=== PATIENT | male | born 1940 | race Caucasian/White ===

== ENCOUNTER 2024-04-02 08:01 | Outpatient (RCR) | payer MEDICARE, BC, SELFPAY | END 2024-04-10 23:59 | disposition home or self-care (01) | LOC: SCTC 08:01 | PROVIDERS: PCP Family Medicine; Referring Provider Family Medicine; Visit Provider Internal Medicine Hematology & Oncology | DX: Z51.11 Encounter for antineoplastic chemotherapy (principal); D46.9 Myelodysplastic syndrome, unspecified; Z87.891 Personal history of nicotine dependence; F10.11 Alcohol abuse, in remission; Z86.718 Personal history of other venous thrombosis and embolism; Z79.01 Long term (current) use of anticoagulants | CPT/HCPCS: 36415; 80053; 85025; 96401; J9025 ==

== ENCOUNTER → 2024-04-26 | Outpatient (CLI) | payer MEDICARE, BC, SELFPAY ==
[2024-04-26 08:35] LABS: Basophils % (Auto) 0 % (0-2.5); Eosinophils # (Auto) 0.1 Thou/mm3 (0.0-0.5); Eosinophils % (Auto) 2 % (0-10); Hematocrit 34.8 % (41.0-53.0); Hemoglobin 11.2 g/dL (13.5-16.0); Immature Granulocytes % (Auto) 1 % (0-0); Immature Granulocytes Auto 0.02 Thou/mm3 (0.00-0.00); Lymphocytes # (Auto) 1.1 Thou/mm3 (1.0-4.8); Lymphocytes % (Auto) 41 % (10-50); Mean Corpuscular HGB Conc 32.2 g/dl (31.0-37.0); Mean Corpuscular Hemoglobin 32.1 pg (25.0-35.0); Mean Corpuscular Volume 100 fL (80-100); Monocytes # (Auto) 0.2 Thou/mm3 (0.0-0.8); Monocytes % (Auto) 9 % (0-12); Neutrophils # (Auto) 1.3 Thou/mm3 (1.8-7.7); Neutrophils % (Auto) 48 % (37-80); Nucleated Red Blood Cell % 0 /100 WBC (0); Platelet Count 102 Thou/mm3 (140-440); RDW Standard Deviation 65.8 fL (35.1-43.9); Red Blood Count 3.49 Miln/mm3 (4.50-5.90)
[2024-04-26 08:44] LABS: White Blood Count 2.8 Thou/mm3 (3.8-10.6)
[2024-04-26 08:47] LABS: Alanine Aminotransferase 21 U/L (10-49); Alkaline Phosphatase 81 U/L (46-116); Anion Gap 8 (7-16); Aspartate Amino Transferase 21 U/L (0-34); BUN/Creatinine Ratio 18 Ratio (12-20); Bilirubin,Total 0.8 mg/dL (0.3-1.2); Blood Urea Nitrogen 16 mg/dL (9-23); Calcium 9.4 mg/dL (8.3-10.6); Calcium (Corrected) 9.4 mg/dL (8.5-10.1); Carbon Dioxide 26.9 mMol/L (20.0-31.0); Chloride 108 mMol/L (98-107); Creatinine (Component) 0.9 mg/dL (0.6-1.3); Glucose 126 mg/dL (74-106); Osmolality,Calculated 288 (275-295); Potassium 3.9 mMol/L (3.4-5.1); Sodium 143 mMol/L (136-145); eGFR > 60 See Note
== END | disposition home or self-care (01) ==
LOC: SCTO 07:24
PROVIDERS: PCP Family Medicine; Referring Provider Internal Medicine Hematology & Oncology; Visit Provider Internal Medicine Hematology & Oncology
DX: D46.9 Myelodysplastic syndrome, unspecified (principal)
CPT/HCPCS: 36415; 80053; 85025

== ENCOUNTER 2024-04-30 07:59 | Outpatient (RCR) | payer MEDICARE, BC, SELFPAY | END 2024-05-11 23:59 | disposition home or self-care (01) | LOC: SCTC 07:59 | PROVIDERS: PCP Family Medicine; Referring Provider Family Medicine; Visit Provider Internal Medicine Hematology & Oncology | DX: Z51.11 Encounter for antineoplastic chemotherapy (principal); D46.9 Myelodysplastic syndrome, unspecified; Z86.718 Personal history of other venous thrombosis and embolism; F10.11 Alcohol abuse, in remission; Z87.891 Personal history of nicotine dependence; Z79.01 Long term (current) use of anticoagulants | CPT/HCPCS: 36415; 80053; 85025; 96401; J9025 ==

== ENCOUNTER → 2024-05-21 | Outpatient (CLI) | payer MEDICARE, BC, SELFPAY ==
[2024-05-21 12:28] LABS: Basophils % (Auto) 1 % (0-2.5); Eosinophils % (Auto) 2 % (0-10); Hematocrit 32.5 % (41.0-53.0); Hemoglobin 10.9 g/dL (13.5-16.0); Immature Granulocytes % (Auto) 1 % (0-0); Immature Granulocytes Auto 0.01 Thou/mm3 (0.00-0.00); Lymphocytes % (Auto) 45 % (10-50); Mean Corpuscular HGB Conc 33.5 g/dl (31.0-37.0); Mean Corpuscular Hemoglobin 32.7 pg (25.0-35.0); Mean Corpuscular Volume 98 fL (80-100); Monocytes # (Auto) 0.2 Thou/mm3 (0.0-0.8); Monocytes % (Auto) 10 % (0-12); Neutrophils # (Auto) 0.9 Thou/mm3 (1.8-7.7); Neutrophils % (Auto) 42 % (37-80); Nucleated Red Blood Cell % 0 /100 WBC (0); Platelet Count 81 Thou/mm3 (140-440); RDW Standard Deviation 64.2 fL (35.1-43.9); Red Blood Count 3.33 Miln/mm3 (4.50-5.90)
[2024-05-21 12:39] LABS: Alanine Aminotransferase 22 U/L (10-49); Albumin, Serum 4.2 gm/dL (3.4-4.8); Alkaline Phosphatase 90 U/L (46-116); Anion Gap 7 (7-16); Aspartate Amino Transferase 14 U/L (0-34); BUN/Creatinine Ratio 17 Ratio (12-20); Bilirubin,Total 1.2 mg/dL (0.3-1.2); Blood Urea Nitrogen 15 mg/dL (9-23); Carbon Dioxide 27.4 mMol/L (20.0-31.0); Chloride 105 mMol/L (98-107); Creatinine (Component) 0.9 mg/dL (0.6-1.3); Globulin 2.1 gm/dL (2.3-3.5); Glucose 97 mg/dL (74-106); Osmolality,Calculated 278 (275-295); Potassium 4.3 mMol/L (3.4-5.1); Sodium 139 mMol/L (136-145); Total Protein 6.3 gm/dL (5.7-8.2); eGFR > 60 See Note
[2024-05-21 12:45] LABS: White Blood Count 2.1 Thou/mm3 (3.8-10.6)
[2024-05-21 15:28] LABS: Path Review Blood Smear Sent to Pathologist
== END | disposition home or self-care (01) ==
LOC: SCTO 11:31
PROVIDERS: PCP Family Medicine; Referring Provider Internal Medicine Hematology & Oncology; Visit Provider Internal Medicine Hematology & Oncology
DX: D46.9 Myelodysplastic syndrome, unspecified (principal)
CPT/HCPCS: 36415; 80053; 85025

== ENCOUNTER → 2024-05-28 | Outpatient (CLI) | payer MEDICARE, BC, SELFPAY ==
[2024-05-28 15:23] LABS: Basophils % (Auto) 0 % (0-2.5); Eosinophils % (Auto) 1 % (0-10); Hematocrit 35.1 % (41.0-53.0); Hemoglobin 11.6 g/dL (13.5-16.0); Immature Granulocytes % (Auto) 1 % (0-0); Immature Granulocytes Auto 0.03 Thou/mm3 (0.00-0.00); Lymphocytes # (Auto) 1.3 Thou/mm3 (1.0-4.8); Lymphocytes % (Auto) 44 % (10-50); Mean Corpuscular Hemoglobin 32.5 pg (25.0-35.0); Mean Corpuscular Volume 98 fL (80-100); Monocytes # (Auto) 0.3 Thou/mm3 (0.0-0.8); Monocytes % (Auto) 11 % (0-12); Neutrophils # (Auto) 1.3 Thou/mm3 (1.8-7.7); Neutrophils % (Auto) 43 % (37-80); Nucleated Red Blood Cell % 0 /100 WBC (0); Platelet Count 88 Thou/mm3 (140-440); RDW Standard Deviation 63.7 fL (35.1-43.9); Red Blood Count 3.57 Miln/mm3 (4.50-5.90)
[2024-05-28 15:38] LABS: Alanine Aminotransferase 18 U/L (10-49); Albumin, Serum 4.2 gm/dL (3.4-4.8); Albumin/Globulin Ratio 2.2 (1.2-2.2); Alkaline Phosphatase 102 U/L (46-116); Anion Gap 7 (7-16); Aspartate Amino Transferase 17 U/L (0-34); BUN/Creatinine Ratio 17 Ratio (12-20); Bilirubin,Total 1.1 mg/dL (0.3-1.2); Blood Urea Nitrogen 15 mg/dL (9-23); Calcium 9.3 mg/dL (8.3-10.6); Calcium (Corrected) 9.3 mg/dL (8.5-10.1); Carbon Dioxide 29.4 mMol/L (20.0-31.0); Chloride 107 mMol/L (98-107); Creatinine (Component) 0.9 mg/dL (0.6-1.3); Globulin 1.9 gm/dL (2.3-3.5); Glucose 99 mg/dL (74-106); Osmolality,Calculated 285 (275-295); Potassium 5.1 mMol/L (3.4-5.1); Sodium 143 mMol/L (136-145); Total Protein 6.1 gm/dL (5.7-8.2); eGFR > 60 See Note
== END | disposition home or self-care (01) ==
PROVIDERS: PCP Family Medicine; Referring Provider Internal Medicine Hematology & Oncology; Visit Provider Internal Medicine Hematology & Oncology
DX: D46.9 Myelodysplastic syndrome, unspecified (principal)
CPT/HCPCS: 36415; 80053; 85025

== ENCOUNTER 2024-06-09 11:19 | Outpatient (RCR) | payer MEDICARE, BC, SELFPAY | END 2024-06-11 23:59 | disposition home or self-care (01) | LOC: SCTC 11:19 | PROVIDERS: PCP Family Medicine; Referring Provider Internal Medicine Hematology & Oncology; Visit Provider Nurse Practitioner Family | DX: Z51.11 Encounter for antineoplastic chemotherapy (principal); D46.9 Myelodysplastic syndrome, unspecified; Z87.891 Personal history of nicotine dependence; F10.11 Alcohol abuse, in remission; Z86.718 Personal history of other venous thrombosis and embolism; Z79.01 Long term (current) use of anticoagulants | CPT/HCPCS: 96401; 99212; J9025; G0463 ==

== ENCOUNTER → 2024-06-25 | Outpatient (CLI) | payer MEDICARE, BC, SELFPAY ==
[2024-06-25 13:24] LABS: Basophils % (Auto) 1 % (0-2.5); Eosinophils % (Auto) 1 % (0-10); Hematocrit 31.5 % (41.0-53.0); Hemoglobin 10.6 g/dL (13.5-16.0); Immature Granulocytes % (Auto) 1 % (0-0); Immature Granulocytes Auto 0.01 Thou/mm3 (0.00-0.00); Lymphocytes # (Auto) 1.1 Thou/mm3 (1.0-4.8); Lymphocytes % (Auto) 49 % (10-50); Mean Corpuscular HGB Conc 33.7 g/dl (31.0-37.0); Mean Corpuscular Hemoglobin 33.5 pg (25.0-35.0); Mean Corpuscular Volume 100 fL (80-100); Monocytes # (Auto) 0.2 Thou/mm3 (0.0-0.8); Monocytes % (Auto) 10 % (0-12); Neutrophils # (Auto) 0.8 Thou/mm3 (1.8-7.7); Neutrophils % (Auto) 38 % (37-80); Nucleated Red Blood Cell % 0 /100 WBC (0); RDW Standard Deviation 64.8 fL (35.1-43.9); Red Blood Count 3.16 Miln/mm3 (4.50-5.90)
[2024-06-25 13:34] LABS: Platelet Count 62 Thou/mm3 (140-440)
[2024-06-25 13:42] LABS: Alanine Aminotransferase 20 U/L (10-49); Albumin, Serum 3.9 gm/dL (3.4-4.8); Albumin/Globulin Ratio 2.1 (1.2-2.2); Alkaline Phosphatase 88 U/L (46-116); Anion Gap 7 (7-16); Aspartate Amino Transferase 22 U/L (0-34); BUN/Creatinine Ratio 18 Ratio (12-20); Bilirubin,Total 0.9 mg/dL (0.3-1.2); Blood Urea Nitrogen 16 mg/dL (9-23); Calcium 8.9 mg/dL (8.3-10.6); Carbon Dioxide 27.5 mMol/L (20.0-31.0); Chloride 108 mMol/L (98-107); Creatinine (Component) 0.9 mg/dL (0.6-1.3); Globulin 1.9 gm/dL (2.3-3.5); Glucose 97 mg/dL (74-106); Osmolality,Calculated 284 (275-295); Potassium 4.6 mMol/L (3.4-5.1); Sodium 142 mMol/L (136-145); Total Protein 5.8 gm/dL (5.7-8.2); eGFR > 60 See Note
[2024-06-25 14:24] LABS: White Blood Count 2.1 Thou/mm3 (3.8-10.6)
[2024-06-25 16:28] LABS: Slide Review Platelets confirmed
== END | disposition home or self-care (01) ==
LOC: SCTO 12:17
PROVIDERS: PCP Family Medicine; Referring Provider Internal Medicine Hematology & Oncology; Visit Provider Internal Medicine Hematology & Oncology
DX: D46.9 Myelodysplastic syndrome, unspecified (principal)
CPT/HCPCS: 36415; 80053; 85025

== ENCOUNTER → 2024-07-20 | Outpatient (CLI) | payer MEDICARE, BC, SELFPAY ==
[2024-07-20 11:35] LABS: Basophils % (Auto) 0 % (0-2.5); Eosinophils % (Auto) 1 % (0-10); Hematocrit 30.2 % (41.0-53.0); Hemoglobin 10.1 g/dL (13.5-16.0); Immature Granulocytes % (Auto) 1 % (0-0); Immature Granulocytes Auto 0.01 Thou/mm3 (0.00-0.00); Lymphocytes # (Auto) 0.8 Thou/mm3 (1.0-4.8); Lymphocytes % (Auto) 45 % (10-50); Mean Corpuscular HGB Conc 33.4 g/dl (31.0-37.0); Mean Corpuscular Hemoglobin 33.3 pg (25.0-35.0); Mean Corpuscular Volume 100 fL (80-100); Monocytes # (Auto) 0.2 Thou/mm3 (0.0-0.8); Monocytes % (Auto) 9 % (0-12); Neutrophils # (Auto) 0.8 Thou/mm3 (1.8-7.7); Neutrophils % (Auto) 44 % (37-80); Nucleated Red Blood Cell % 0 /100 WBC (0); RDW Standard Deviation 63.7 fL (35.1-43.9); Red Blood Count 3.03 Miln/mm3 (4.50-5.90)
[2024-07-20 11:44] LABS: Platelet Count 36 Thou/mm3 (140-440); White Blood Count 1.7 Thou/mm3 (3.8-10.6)
[2024-07-20 11:54] LABS: Folate 12.44 ng/mL (>5.38); Vitamin B12 1300 pg/mL (211-911)
[2024-07-20 11:55] LABS: Ferritin 361 ng/mL (10.5-307.3); Iron 221 mcg/dL (65-175); Percent Iron Saturation 80 % (20-55); Total Iron Binding Capacity 276 mcg/dL (250-425); Unsaturated Iron Binding 55 (225-295)
[2024-07-20 12:02] LABS: Alanine Aminotransferase 20 U/L (10-49); Albumin, Serum 3.9 gm/dL (3.4-4.8); Albumin/Globulin Ratio 2.1 (1.2-2.2); Alkaline Phosphatase 80 U/L (46-116); Anion Gap 4 (7-16); Aspartate Amino Transferase 21 U/L (0-34); BUN/Creatinine Ratio 16 Ratio (12-20); Bilirubin,Total 1.3 mg/dL (0.3-1.2); Blood Urea Nitrogen 14 mg/dL (9-23); Calcium 8.8 mg/dL (8.3-10.6); Calcium (Corrected) 8.9 mg/dL (8.5-10.1); Carbon Dioxide 27.5 mMol/L (20.0-31.0); Chloride 109 mMol/L (98-107); Creatinine (Component) 0.9 mg/dL (0.6-1.3); Globulin 1.9 gm/dL (2.3-3.5); Glucose 93 mg/dL (74-106); Osmolality,Calculated 279 (275-295); Potassium 4.8 mMol/L (3.4-5.1); Sodium 140 mMol/L (136-145); Total Protein 5.8 gm/dL (5.7-8.2); eGFR > 60 See Note
[2024-07-20 12:11] LABS: Slide Review Platelets confirmed
== END | disposition home or self-care (01) ==
PROVIDERS: PCP Family Medicine; Referring Provider Nurse Practitioner Family; Visit Provider Nurse Practitioner Family
DX: I82.402 Acute embolism and thrombosis of unspecified deep veins of left lower extremity (principal); D46.9 Myelodysplastic syndrome, unspecified
CPT/HCPCS: 36415; 80053; 82607; 82728; 82746; 83540; 83550; 85025

== ENCOUNTER → 2024-07-23 | Outpatient (CLI) | payer MEDICARE, BC, SELFPAY ==
[2024-07-23 13:44] LABS: Basophils % (Auto) 1 % (0-2.5); Eosinophils % (Auto) 1 % (0-10); Hematocrit 28.6 % (41.0-53.0); Hemoglobin 9.2 g/dL (13.5-16.0); Immature Granulocytes % (Auto) 1 % (0-0); Immature Granulocytes Auto 0.01 Thou/mm3 (0.00-0.00); Lymphocytes # (Auto) 0.8 Thou/mm3 (1.0-4.8); Lymphocytes % (Auto) 39 % (10-50); Mean Corpuscular HGB Conc 32.2 g/dl (31.0-37.0); Mean Corpuscular Hemoglobin 33.6 pg (25.0-35.0); Mean Corpuscular Volume 104 fL (80-100); Monocytes # (Auto) 0.2 Thou/mm3 (0.0-0.8); Monocytes % (Auto) 8 % (0-12); Neutrophils % (Auto) 51 % (37-80); Nucleated Red Blood Cell % 0 /100 WBC (0); RDW Standard Deviation 66.6 fL (35.1-43.9); Red Blood Count 2.74 Miln/mm3 (4.50-5.90)
[2024-07-23 14:02] LABS: Alanine Aminotransferase 12 U/L (10-49); Albumin, Serum 3.7 gm/dL (3.4-4.8); Albumin/Globulin Ratio 1.9 (1.2-2.2); Alkaline Phosphatase 86 U/L (46-116); Anion Gap 9 (7-16); Aspartate Amino Transferase 16 U/L (0-34); BUN/Creatinine Ratio 13 Ratio (12-20); Bilirubin,Total 0.7 mg/dL (0.3-1.2); Blood Urea Nitrogen 13 mg/dL (9-23); Calcium 8.3 mg/dL (8.3-10.6); Calcium (Corrected) 8.5 mg/dL (8.5-10.1); Carbon Dioxide 26.2 mMol/L (20.0-31.0); Chloride 108 mMol/L (98-107); Globulin 1.9 gm/dL (2.3-3.5); Glucose 99 mg/dL (74-106); Osmolality,Calculated 285 (275-295); Potassium 4.1 mMol/L (3.4-5.1); Sodium 143 mMol/L (136-145); Total Protein 5.6 gm/dL (5.7-8.2); eGFR > 60 See Note
[2024-07-23 14:12] LABS: Platelet Count 43 Thou/mm3 (140-440); White Blood Count 1.9 Thou/mm3 (3.8-10.6)
[2024-07-23 15:19] LABS: Slide Review Platelets confirmed
== END | disposition home or self-care (01) ==
PROVIDERS: PCP Family Medicine; Referring Provider Internal Medicine Hematology & Oncology; Visit Provider Internal Medicine Hematology & Oncology
DX: D46.9 Myelodysplastic syndrome, unspecified (principal)
CPT/HCPCS: 36415; 80053; 85025

== ENCOUNTER → 2024-08-02 | Outpatient (CLI) | payer MEDICARE, BC, SELFPAY ==
[2024-08-02 11:30] LABS: Basophils % (Auto) 0 % (0-2.5); Eosinophils % (Auto) 0 % (0-10); Hematocrit 35.7 % (41.0-53.0); Hemoglobin 11.8 g/dL (13.5-16.0); Immature Granulocytes % (Auto) 1 % (0-0); Immature Granulocytes Auto 0.04 Thou/mm3 (0.00-0.00); Lymphocytes # (Auto) 1.3 Thou/mm3 (1.0-4.8); Lymphocytes % (Auto) 37 % (10-50); Mean Corpuscular HGB Conc 33.1 g/dl (31.0-37.0); Mean Corpuscular Hemoglobin 33.5 pg (25.0-35.0); Mean Corpuscular Volume 101 fL (80-100); Monocytes # (Auto) 0.3 Thou/mm3 (0.0-0.8); Monocytes % (Auto) 8 % (0-12); Neutrophils # (Auto) 1.9 Thou/mm3 (1.8-7.7); Neutrophils % (Auto) 54 % (37-80); Nucleated Red Blood Cell % 0 /100 WBC (0); Platelet Count 90 Thou/mm3 (140-440); Red Blood Count 3.52 Miln/mm3 (4.50-5.90); White Blood Count 3.6 Thou/mm3 (3.8-10.6)
[2024-08-02 11:46] LABS: Alanine Aminotransferase 18 U/L (10-49); Albumin, Serum 4.2 gm/dL (3.4-4.8); Alkaline Phosphatase 92 U/L (46-116); Anion Gap 9 (7-16); Aspartate Amino Transferase 21 U/L (0-34); BUN/Creatinine Ratio 20 Ratio (12-20); Bilirubin,Total 1.2 mg/dL (0.3-1.2); Blood Urea Nitrogen 18 mg/dL (9-23); Calcium 9.3 mg/dL (8.3-10.6); Calcium (Corrected) 9.3 mg/dL (8.5-10.1); Chloride 104 mMol/L (98-107); Creatinine (Component) 0.9 mg/dL (0.6-1.3); Globulin 2.1 gm/dL (2.3-3.5); Glucose 89 mg/dL (74-106); Osmolality,Calculated 280 (275-295); Potassium 4.6 mMol/L (3.4-5.1); Sodium 140 mMol/L (136-145); Total Protein 6.3 gm/dL (5.7-8.2); eGFR > 60 See Note
[2024-08-02 11:50] LABS: Ferritin 352 ng/mL (10.5-307.3); Iron 126 mcg/dL (65-175); Percent Iron Saturation 43 % (20-55); Total Iron Binding Capacity 291 mcg/dL (250-425); Unsaturated Iron Binding 165 (225-295)
== END | disposition home or self-care (01) ==
LOC: COPL 10:43
PROVIDERS: PCP Family Medicine; Referring Provider Nurse Practitioner Family; Visit Provider Nurse Practitioner Family
DX: D46.9 Myelodysplastic syndrome, unspecified (principal); I82.402 Acute embolism and thrombosis of unspecified deep veins of left lower extremity
CPT/HCPCS: 36415; 80053; 82728; 83540; 83550; 85025

== ENCOUNTER 2024-08-04 08:37 | Outpatient (RCR) | payer MEDICARE, BC, SELFPAY | END 2024-08-09 23:59 | disposition home or self-care (01) | LOC: SCTC 08:37 | PROVIDERS: PCP Family Medicine; Referring Provider Internal Medicine Hematology & Oncology; Visit Provider Internal Medicine Hematology & Oncology | DX: Z51.11 Encounter for antineoplastic chemotherapy (principal); D46.9 Myelodysplastic syndrome, unspecified; F10.11 Alcohol abuse, in remission; Z87.891 Personal history of nicotine dependence; Z86.718 Personal history of other venous thrombosis and embolism; Z79.01 Long term (current) use of anticoagulants | CPT/HCPCS: 36415; 36430; 86850; 86900; 86901; 86965; 96401; 99212; A4699; J7040; J9025; P9035; G0463 ==

== ENCOUNTER → 2024-08-13 | Outpatient (CLI) | payer MEDICARE, BC, SELFPAY ==
[2024-08-13 13:21] LABS: Basophils % (Auto) 1 % (0-2.5); Eosinophils % (Auto) 1 % (0-10); Hematocrit 27.7 % (41.0-53.0); Hemoglobin 9.2 g/dL (13.5-16.0); Immature Granulocytes % (Auto) 1 % (0-0); Immature Granulocytes Auto 0.02 Thou/mm3 (0.00-0.00); Lymphocytes # (Auto) 0.7 Thou/mm3 (1.0-4.8); Lymphocytes % (Auto) 38 % (10-50); Mean Corpuscular HGB Conc 33.2 g/dl (31.0-37.0); Mean Corpuscular Hemoglobin 33.6 pg (25.0-35.0); Mean Corpuscular Volume 101 fL (80-100); Monocytes # (Auto) 0.1 Thou/mm3 (0.0-0.8); Monocytes % (Auto) 7 % (0-12); Neutrophils % (Auto) 53 % (37-80); Nucleated Red Blood Cell % 0 /100 WBC (0); RDW Standard Deviation 61.8 fL (35.1-43.9); Red Blood Count 2.74 Miln/mm3 (4.50-5.90)
[2024-08-13 13:23] LABS: Platelet Count 27 Thou/mm3 (140-440); White Blood Count 1.9 Thou/mm3 (3.8-10.6)
[2024-08-13 13:55] LABS: Slide Review Platelets confirmed
== END | disposition home or self-care (01) ==
LOC: SCTO 12:16
PROVIDERS: PCP Family Medicine; Referring Provider Nurse Practitioner Family; Visit Provider Nurse Practitioner Family
DX: I82.402 Acute embolism and thrombosis of unspecified deep veins of left lower extremity (principal); D46.9 Myelodysplastic syndrome, unspecified
CPT/HCPCS: 36415; 85025

== ENCOUNTER → 2024-08-20 | Outpatient (CLI) | payer MEDICARE, BC, SELFPAY ==
[2024-08-20 13:31] LABS: Basophils % (Auto) 1 % (0-2.5); Eosinophils % (Auto) 1 % (0-10); Hematocrit 27.2 % (41.0-53.0); Immature Granulocytes % (Auto) 1 % (0-0); Immature Granulocytes Auto 0.02 Thou/mm3 (0.00-0.00); Lymphocytes # (Auto) 0.6 Thou/mm3 (1.0-4.8); Lymphocytes % (Auto) 44 % (10-50); Mean Corpuscular Hemoglobin 34.1 pg (25.0-35.0); Mean Corpuscular Volume 107 fL (80-100); Monocytes # (Auto) 0.1 Thou/mm3 (0.0-0.8); Monocytes % (Auto) 7 % (0-12); Neutrophils # (Auto) 0.6 Thou/mm3 (1.8-7.7); Neutrophils % (Auto) 46 % (37-80); Nucleated Red Blood Cell % 0 /100 WBC (0); RDW Standard Deviation 68.4 fL (35.1-43.9); Red Blood Count 2.55 Miln/mm3 (4.50-5.90)
[2024-08-20 13:37] LABS: Hemoglobin 8.7 g/dL (13.5-16.0); Platelet Count 51 Thou/mm3 (140-440); White Blood Count 1.4 Thou/mm3 (3.8-10.6)
[2024-08-20 13:49] LABS: Slide Review Platelets confirmed
== END | disposition home or self-care (01) ==
LOC: SCTO 12:01
PROVIDERS: PCP Family Medicine; Referring Provider Nurse Practitioner Family; Visit Provider Nurse Practitioner Family
DX: I82.402 Acute embolism and thrombosis of unspecified deep veins of left lower extremity (principal); D46.9 Myelodysplastic syndrome, unspecified
CPT/HCPCS: 36415; 85025

== ENCOUNTER → 2024-08-31 | Outpatient (CLI) | payer MEDICARE, BC, SELFPAY ==
[2024-08-31 12:08] LABS: Basophils % (Auto) 1 % (0-2.5); Eosinophils % (Auto) 0 % (0-10); Hematocrit 29.7 % (41.0-53.0); Hemoglobin 9.9 g/dL (13.5-16.0); Immature Granulocytes % (Auto) 2 % (0-0); Immature Granulocytes Auto 0.06 Thou/mm3 (0.00-0.00); Lymphocytes # (Auto) 1.3 Thou/mm3 (1.0-4.8); Lymphocytes % (Auto) 39 % (10-50); Mean Corpuscular HGB Conc 33.3 g/dl (31.0-37.0); Mean Corpuscular Hemoglobin 34.6 pg (25.0-35.0); Mean Corpuscular Volume 104 fL (80-100); Monocytes # (Auto) 0.2 Thou/mm3 (0.0-0.8); Monocytes % (Auto) 6 % (0-12); Neutrophils # (Auto) 1.7 Thou/mm3 (1.8-7.7); Neutrophils % (Auto) 52 % (37-80); Nucleated Red Blood Cell # 0.02 Thou/mm3 (0.00-0.00); Nucleated Red Blood Cell % 1 /100 WBC (0); RDW Standard Deviation 67.7 fL (35.1-43.9); Red Blood Count 2.86 Miln/mm3 (4.50-5.90); White Blood Count 3.2 Thou/mm3 (3.8-10.6)
[2024-08-31 12:09] LABS: Platelet Count 58 Thou/mm3 (140-440)
[2024-08-31 12:14] LABS: Alanine Aminotransferase 18 U/L (10-49); Albumin, Serum 3.9 gm/dL (3.4-4.8); Albumin/Globulin Ratio 1.9 (1.2-2.2); Alkaline Phosphatase 79 U/L (46-116); Anion Gap 8 (7-16); Aspartate Amino Transferase 19 U/L (0-34); BUN/Creatinine Ratio 18 Ratio (12-20); Bilirubin,Total 1.1 mg/dL (0.3-1.2); Blood Urea Nitrogen 16 mg/dL (9-23); Calcium 8.7 mg/dL (8.3-10.6); Calcium (Corrected) 8.8 mg/dL (8.5-10.1); Carbon Dioxide 24.7 mMol/L (20.0-31.0); Chloride 109 mMol/L (98-107); Creatinine (Component) 0.9 mg/dL (0.6-1.3); Globulin 2.1 gm/dL (2.3-3.5); Glucose 100 mg/dL (74-106); Osmolality,Calculated 284 (275-295); Potassium 4.2 mMol/L (3.4-5.1); Sodium 142 mMol/L (136-145); eGFR > 60 See Note
[2024-08-31 13:04] LABS: Slide Review Platelets confirmed
== END | disposition home or self-care (01) ==
PROVIDERS: PCP Family Medicine; Referring Provider Nurse Practitioner Family; Visit Provider Nurse Practitioner Family
DX: I82.402 Acute embolism and thrombosis of unspecified deep veins of left lower extremity (principal)
CPT/HCPCS: 36415; 80053; 85025

== ENCOUNTER 2024-09-02 15:12 | Outpatient (RCR) | payer MEDICARE, BC, SELFPAY ==
[2024-08-23 11:12] LABS: Alanine Aminotransferase 16 U/L (10-49); Albumin, Serum 3.9 gm/dL (3.4-4.8); Alkaline Phosphatase 82 U/L (46-116); Anion Gap 7 (7-16); Aspartate Amino Transferase 19 U/L (0-34); BUN/Creatinine Ratio 14 Ratio (12-20); Bilirubin,Total 0.8 mg/dL (0.3-1.2); Blood Urea Nitrogen 13 mg/dL (9-23); Calcium 8.6 mg/dL (8.3-10.6); Calcium (Corrected) 8.7 mg/dL (8.5-10.1); Carbon Dioxide 24.4 mMol/L (20.0-31.0); Chloride 110 mMol/L (98-107); Creatinine (Component) 0.9 mg/dL (0.6-1.3); Glucose 131 mg/dL (74-106); Osmolality,Calculated 283 (275-295); Potassium 4.2 mMol/L (3.4-5.1); Sodium 141 mMol/L (136-145); Total Protein 5.9 gm/dL (5.7-8.2); eGFR > 60 See Note
--- NOTE | 2024-09-07 02:23 | CTCFLWUP_ITS ---
Patient: MICHAEL RAMSAY : 1940 Page 5 of 6 FOLLOW UP NOTE DATE OF SERVICE: 09/02/2024 NAME: MICHAEL RAMSAY ACCOUNT: [id number] : 1940 AGE: 83 INTERVAL HISTORY: I am seeing Mr. Ramsay today for follow-up for MDS. Patient received transfusion of 1 unit of platelets on 07/26/2024 for platelet above 43,000. Patient has received Vidaza on 07/30/2024. Labs drawn on 08/02/2024 show platelets 90,000, hemoglobin 11.8. Next vidaza is scheduled for 08/23/2024. Dena powell reports good appetite and energy levels, denies any concerns during today's appointment. The patient is currently undergoing treatment for MDS with Vidaza (azacitidine) on a regimen of day one to day five, once a month, as prescribed by Dr. Tellez. They have not required any blood transfusions recently, though last month they received one unit of platelets due to low platelet count. The patient continues to take anticoagulants for their history of deep vein thrombosis (DVT) in both the leg and arm. Medical History - Myelodysplastic syndrome (MDS) - Deep vein thrombosis (DVT) with history of blood clots in leg and arm - Chronic respiratory issues requiring oxygen therapy at night and as needed - Seasonal allergies Surgical History - Bone marrow biopsy in [place] (specimen quality was poor) Medications and Supplements - Vidaza (azacitidine) - Day one to day five, once a month - For MDS treatment - Singulair - For allergies - Inhalers - Anticoagulants - For DVT - Oxygen - Used at night and as needed - Prescribed by multiple knife edge trimmer operator Allergies - Patient attributes breathing problems to allergies - Patient uses Singulair for allergies Social History - Living Situation: Resides in the [place] - Environmental Factors: Exposure to allergens in the [place] Review of Systems General: Positive for fatigue. Respiratory: Positive for dyspnea on exertion, breathing problems. ONCOLOGY HISTORY: Myelodysplastic syndrome with IPSS?R score of 3, risk category intermediate Currently on azacitidine (12/16/2022??). DIAGNOSIS: Myelodysplastic syndrome, unspecified [ICD10] D46.9 Myelodysplastic syndrome with IPSS?R score of 3, risk category intermediate DATE OF DIAGNOSIS: 11/13/2022 STAGE/TNM: Myelodysplastic syndrome with IPSS?R score of 3, risk category intermediate TREATMENT HISTORY: Care?Plan Start?Date Cycle Day Intent Azacitadine?sq?d1-5 12/16/2022 1 28 Palliative Azacytadine?sq?days?1-5 05/31/2024 1 28 Maintenance HISTORY OF PRESENT ILLNESS: Michael Ramsay is a 83-year-old ENG speaking male with remote history of cigarette smoking as well as alcohol abuse is referred to hematology clinic for anemia and thrombocytopenia. About 10 years ago patient apparently had an unprovoked left lower extremity DVT. About 8 years ago he had right knee surgery. At that time he developed left lower extremity DVT again. He also has remote history of left upper extremity DVT. Currently Mr. Ramsay is on indefinite anticoagulation with apixaban. 07/22/2022: WBC 3.2, ANC 2.1, hemoglobin 9.1, MCV 105, platelets 83,000. 11/13/2022: Mr. Ramsay had bone marrow biopsy and aspiration was done due to macrocytic anemia and thrombocytopenia. 12/13/2022: WBC 2.6, ANC 1.5, hemoglobin 7.8, MCV 104, platelets 57,000. 12/16/2022 - 04/18/2023: Mr. Ramsay had 5 cycles of Vidaza 05/13/2023: WBC 3.2, ANC 1.8, hemoglobin 9.6, MCV 105, platelets 103,000. 08/22/2023: Mr. Ramsay received 9 cycles of Vidaza 09/01/2023: WBC 3.3, ANC 2.0, hemoglobin 10.2, MCV 100, platelets 86,000. 10/13/2023: WBC 2.2, ANC 1.7, hemoglobin 10.9, MCV 101, platelets 143,000. OTHER MEDICAL HISTORY/CONDITIONS: Asthma Hx?DVT GERD Chronic?pain Cholecystectomy - 2007 Right TKA - 2017 [facility] carpal tunnel surgery - 30 yrs ago [facility] cataract surgery [facility] Lasik surgery Retinal repair right eye FAMILY HISTORY: Cancer?History:?Denies Patient?denies?family?cancer?history. 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 Tobacco Use:?Quit 1964 - smoked 1 PPD off/on x 10yrs ETOH Use:?Drinks beer almost daily x 15 yrs Drug?Note:?Denies Social?History?Note:?Lives?with? MEDICATIONS: 1. CeleBREX - 50 mg 1 Capsule Daily 2. cyanocobalamin (vitamin B-12) - 1,000 mcg 1 tab Daily 3. Decadron - 4 mg Daily 4. Eliquis - 5 mg 2 tab Twice a Day 5. Protonix - 40 mg Daily 6. sildenafiL - 25 mg 1 tab As needed 7. Singulair - 10 mg 1 tab Daily Medications Last Reconciled by Letitia Flannery MA on 09/02/2024 ALLERGIES: morphine REVIEW OF SYSTEMS: A complete 14-point review of systems was performed and is negative except as noted in interval history. PHYSICAL EXAMINATION: VITAL SIGNS: Temperature?99.5, B/P?102/60, Oxygen?Saturation?96% PAIN: 0 - No pain ECOG Performance Status: None Not done visit was telemedicine. LABORATORY DATA: I have personally reviewed and interpreted each of the patient?s relevant lab tests, abnormal findings are below: Date 08/20/24 08/23/24 08/31/24 ??WHITE?BLOOD?COUNT?(Thou/mm3) 1.4?L ? 3.2?L ??RED?BLOOD?COUNT?(Miln/mm3) 2.55?L ? 2.86?L ??HEMOGLOBIN?(gm/dl) 8.7?L ? 9.9?L ??HEMATOCRIT?(%) 27.2?L ? 29.7?L ??PLATELET?COUNT?(Thou/mm3) 51?L ? 58?L ??NEUTROPHILS?%,?AUTO?(%) 46 ? 52 ??LYMPH?%,?AUTO?(%) 44 ? 39 ??NEUTROPHILS,?AUTO?(Thou/mm3) 0.6?L ? 1.7?L ??GLUCOSE,RANDOM?(mg/dL) ? 131?H 100 ??BLOOD?UREA?NITROGEN?(mg/dL) ? 13 16 ??CREATININE?(mg/dL) ? 0.90 0.90 ??SODIUM?(mmol/L) ? 141 142 ??POTASSIUM?(mmol/L) ? 4.2 4.2 ??CHLORIDE?(mmol/L) ? 110?H 109?H ??CrCl?(CandG)?(ml/min) ? 69.08 69.30 ??AST/SGOT?(Unit/L) ? 19 19 ??ALT/SGPT?(Unit/L) ? 16 18 ??ALKALINE?PHOSPHATASE?(Unit/L) ? 82 79 ??BILIRUBIN,?TOTAL?(mg/dL) ? 0.8 1.1 ??PROTEIN?TOTAL?(gm/dl) ? 5.9 6.0 ??ALBUMIN,?SERUM?(gm/dl) ? 3.9 3.9 ??GLOBULIN?(gm/dl) ? 2.0?L 2.1?L ??ALBUMIN/GLOBULIN?RATIO ? 2.0 1.9 ??CALCIUM,?SERUM?(mg/dL) ? 8.6 8.7 ??CALCIUM?SERUM?(CORRECTED)?(mg/dL) ? 8.7 8.8 Vital Signs - Oxygen Saturation: 95% (patient's usual rate) Laboratory, Imaging, and Diagnostic Test Results - Date: Not specified - CBC: - WBC: 3.2 - Hemoglobin: 9.9 g/dL - Platelets: 58 - Previous results: - Platelets: 45, 90, 57 (dates not specified) - Oxygen saturation: 95% (date not specified) ASSESSMENT/PLAN: 1. Myelodysplastic syndrome with IPSS?R score of 3, risk category intermediate Currently he is on azacitidine and tolerating it. Patient received transfusion of 1 unit of platelets on 07/26/2024 for platelet above 43,000. Devendra, a patient with a history of myelodysplastic syndrome (MDS) and deep vein thrombosis (DVT), ongoing cancer treatment. Myelodysplastic Syndrome (MDS) Assessment: Patient is currently undergoing treatment for MDS with azacitidine (Vidaza) on a 5-day monthly regimen. Recent lab results show fluctuating platelet counts (45 to 90, now 57), hemoglobin of 9.9, and white blood cell count of 3.2. The treatment appears to be effective, as the patient has not required blood transfusions recently, except for one unit of platelets last month due to low platelet count. A bone marrow biopsy is needed for accurate assessment of cancer progression, as the previous specimen from [place] was inadequate. Plan: - Continue azacitidine (Vidaza) treatment, days 1-5 monthly - Schedule bone marrow biopsy in [place], pending insurance authorization - Monitor blood counts and transfuse as needed - Follow up in 2 months, ideally after bone marrow biopsy results allergies Assessment: Oxygen saturation is consistently around 95%. The patient uses oxygen at night and as needed, prescribed by their multiple knife edge trimmer operator. Allergies have been considered as a contributing factor. Plan: - Continue current oxygen therapy as prescribed by multiple knife edge trimmer operator - Maintain use of Singular and inhalers for allergy and respiratory management Deep Vein Thrombosis (DVT) Assessment: Patient has a history of blood clots in both leg and arm, currently managed with anticoagulants. Plan: - Continue current anticoagulation therapy for DVT management 2. History of alcohol abuse, cigarette smoking in the past. 3. History of recurrent left lower extremity DVT. Currently patient is on indefinite anticoagulation with Eliquis. CBC every 2 weeks to monitor platelet level. Order # Description [id number] Follow Up [id number] CBC with Auto Diff [id number] CBC with Auto Diff + Comprehensive Metabolic Panel - 12 ORDERS: Order # Description RETURN TO CLINIC: BILLING AND COMPLIANCE: I reviewed external records from providers outside my specialty as summarized above. I spent a total of 50 minutes on this patient?s care on the day of their visit excluding time spent related to any billed procedures. This time includes time spent with the patient as well as time spent documenting in the medical record, reviewing patients records and tests, obtaining history, placing orders, communicating with other healthcare professionals, counseling the patient, family or caregiver, and/or care coordination for the diagnoses above. Electronically Signed by: {Object.Sanct_ID*PnP.NameFL@M}, {Object.Sanct_ID*PnP.Suffix@U} D: {Object.Sanct_Date} T: {Object.Sanct_Time} CC: Deborah?Janusz,? PCP: Gilmer Sims Referring: Gilmer Sims This document was completed utilizing speech recognition software. Grammatical errors, random word insertions, pronoun errors, and incomplete sentences are an occasional consequence of this system due to software limitations, ambient noise, and hardware issues. Any formal questions or concerns about the content, text or information contained within the body of this dictation should be directly addressed to the provider for clarification.
== END 2024-09-08 23:59 | disposition home or self-care (01) ==
LOC: SCTC 15:12
PROVIDERS: PCP Internal Medicine; Referring Provider Internal Medicine; Visit Provider Internal Medicine Hematology & Oncology
DX: Z51.11 Encounter for antineoplastic chemotherapy (principal); D46.9 Myelodysplastic syndrome, unspecified; Z86.718 Personal history of other venous thrombosis and embolism; Z79.01 Long term (current) use of anticoagulants; F10.11 Alcohol abuse, in remission; Z87.891 Personal history of nicotine dependence
CPT/HCPCS: 36415; 36430; 80053; 86965; 96401; 99212; A4216; J9025; P9035; G0463

== ENCOUNTER 2024-09-16 17:07 | Emergency (ER) | payer MEDICARE, BC, SELFPAY ==
--- NOTE | 2024-09-16 17:46 | PD.EDRME ---
Rapid Medical Screening Exam RME Arrival date/time: 09/16/24 17:07 83-year-old male with a history of leukemia presents to the emergency room with a chief complaint of a low hemoglobin and platelet level. Patient was sent over by the cancer treatment center. I have greeted and performed a focused initial assessment of this patient. A comprehensive ED assessment and evaluation of the patient, analysis of all test results, and completion of the medical decision making process will be conducted by additional ED providers. Chief Complaint: Recheck/Abnormal Lab/Rx Vital signs reviewed by provider: Yes
[2024-09-16 17:49] VITALS: BP 115/64; PULSE 84; RESP 18; TEMP 37.1; O2SAT 98
[2024-09-16 17:50] VITALS: BMI 29.4
[2024-09-16 18:29] LABS: Basophils % (Auto) 0 % (0-2.5); Eosinophils % (Auto) 1 % (0-10); Hematocrit 22.2 % (41.0-53.0); Immature Granulocytes % (Auto) 1 % (0-0); Immature Granulocytes Auto 0.01 Thou/mm3 (0.00-0.00); Lymphocytes # (Auto) 1.1 Thou/mm3 (1.0-4.8); Lymphocytes % (Auto) 66 % (10-50); Mean Corpuscular HGB Conc 32.9 g/dl (31.0-37.0); Mean Corpuscular Hemoglobin 34.6 pg (25.0-35.0); Mean Corpuscular Volume 105 fL (80-100); Monocytes # (Auto) 0.1 Thou/mm3 (0.0-0.8); Monocytes % (Auto) 6 % (0-12); Neutrophils # (Auto) 0.5 Thou/mm3 (1.8-7.7); Neutrophils % (Auto) 26 % (37-80); Nucleated Red Blood Cell # 0.02 Thou/mm3 (0.00-0.00); Nucleated Red Blood Cell % 1 /100 WBC (0); Red Blood Count 2.11 Miln/mm3 (4.50-5.90)
[2024-09-16 18:35] LABS: Hemoglobin 7.3 g/dL (13.5-16.0); White Blood Count 1.7 Thou/mm3 (3.8-10.6)
[2024-09-16 18:36] LABS: Platelet Count 26 Thou/mm3 (140-440); Slide Review Platelets confirmed
[2024-09-16 18:58] LABS: Alanine Aminotransferase 18 U/L (10-49); Alkaline Phosphatase 78 U/L (46-116); Anion Gap 6 (7-16); Aspartate Amino Transferase 22 U/L (0-34); BUN/Creatinine Ratio 17 Ratio (12-20); Blood Urea Nitrogen 17 mg/dL (9-23); Calcium 8.5 mg/dL (8.3-10.6); Calcium (Corrected) 8.5 mg/dL (8.5-10.1); Carbon Dioxide 24.9 mMol/L (20.0-31.0); Chloride 111 mMol/L (98-107); Estimated Creatinine Clearance 66.1 mL/min (>60); Glucose 95 mg/dL (74-106); Osmolality,Calculated 284 (275-295); Potassium 4.5 mMol/L (3.4-5.1); Sodium 142 mMol/L (136-145); eGFR > 60 See Note
[2024-09-16 19:27] LABS: INR 1.1 (0.9-1.3); Partial Thromboplastin Time 27.6 Seconds (22.0-36.0); Prothrombin Time 11.5 Seconds (9.0-12.2)
[2024-09-16 20:49] VITALS: BP 112/64; PULSE 81; RESP 16; TEMP 36.6; O2SAT 97
[2024-09-16 23:21] VITALS: BP 108/63; PULSE 92; RESP 17; TEMP 36.6; O2SAT 99
[2024-09-16 23:44] VITALS: BP 106/56; PULSE 75; RESP 18; TEMP 36.7; O2SAT 98
[2024-09-17] VITALS (8 sets, daily range): BP systolic 100–119; BP diastolic 52–61; PULSE 71–97; RESP 16–19; TEMP 36.4–36.6; O2SAT 98–100
--- NOTE | 2024-09-17 01:01 | PD.EDADULT ---
ED General RME/HPI General Chief complaint: Recheck/Abnormal Lab/Rx Stated complaint: SENT FOR BLOOD AND PLATELETS BY CHEMO [facility] Time Seen by Provider: 09/16/24 21:45 Arrival date/time: 09/16/24 17:07 83-year-old male with a history of myelodysplastic syndrome presents to the ED with a complaint of low hemoglobin and platelet level. He was sent to the ED by the cancer treatment center. He has been complaining of significant fatigue and weakness, worsening recently. His last chemo was 3 weeks ago. He has received multiple transfusions in the past. He denies any recent illness with fever, chills, cough, upper respiratory complaints. He denies any abdominal pain. Mode of arrival: ambulatory RME / HPI RME / HPI narrative: 09/16/24 17:07 83-year-old male with a history of leukemia presents to the emergency room with a chief complaint of a low hemoglobin and platelet level. Patient was sent over by the cancer treatment center. I have greeted and performed a focused initial assessment of this patient. A comprehensive ED assessment and evaluation of the patient, analysis of all test results, and completion of the medical decision making process will be conducted by additional ED providers. Related Data Home Medications ?Medication ?Instructions ?Recorded ?Confirmed apixaban 2.5 mg tablet (Eliquis) 2.5 mg PO BID 07/23/22 11/13/22 Held on 11/13/22. Instructions: Resume on 11/16/22. fluoxetine 20 mg capsule 20 mg PO QDAY 07/23/22 11/13/22 ipratropium 0.5 mg-albuterol 3 mg 3 ml inhalation Q6H PRN Shortness 07/23/22 11/13/22 (2.5 mg base)/3 mL nebulization Of Breath Or Wheezing soln pantoprazole 40 mg tablet,delayed 40 mg PO DAILY 07/23/22 11/13/22 release celecoxib 50 mg capsule 100 mg PO 1XD 11/13/22 11/13/22 Allergies Allergy/AdvReac Type Severity Reaction Status Date / Time No Known Allergies Allergy Verified 11/09/24 16:23 Review of Systems Review of Systems Systems Reviewed: All systems reviewed, normal except as documented Past Medical History Past Medical History NEUROLOGIC: Negative Neurological Disorders CARDIAC: Positive Valvular Heart Disease (LEAKY VALVE) and Edema (CURRENTLY ON LASIX); Negative Cardiac Disorders or Congestive Heart Failure RESPIRATORY: Positive Chronic Obstructive Pulmonary Disease (COPD) and Bronchitis GASTROINTESTINAL: Positive Gastrointestinal Disorders, Gall Bladder Disease and Gastroesophageal Reflux Disease GENITOURINARY: Negative Genitourinary Disorders or Renal Disease MUSCULOSKELETAL: Positive Musculoskeletal Disorders and Arthritis (TERRIBLE PAIN TAKING TYLENOL, HDROCODONE) ENT: Positive Cataracts and Retinal Detachment ENDOCRINE: Negative Endocrine Disorders, Diabetes Mellitus Type 1 or Diabetes Mellitus Type 2 HEMATOLOGIC: Positive Blood Disorders (thrombocytopenia) and Anemia PSYCHO/SOCIAL: Positive Depression OTHER HISTORY: Positive Cancer (MYELODIAPLASTIC SYNDROME ON CHEMO NEXT TREATMENT ON Friday11/15/24); Negative Developmental Delay, Falls or Anesthesia Reactions Surgical History SURGICAL: Positive Eye Surgery and Abdominal Surgery Social History SMOKING STATUS: Former smoker ED Exam Narrative Physical exam: VITAL SIGNS: Reviewed. GENERAL APPEARANCE: Alert and interactive, follows commands, no acute distress, well developed, nourished, appears weak and fatigued. HEAD AND FACE: Non-traumatic. ENT: PERRL, pale conjunctivitis, eyelid no trauma, anterior chamber clear. LUNGS: Clear, well ventilated, symmetric, no rales, no wheezing, no ronchi, no stridor, good breath sounds bilaterally. HEART: Regular rate, regular rhythm, no murmur, no gallops. VASCULAR: +1-2 bilateral pitting peripheral edema. ABDOMEN: Soft, positive bowel sounds, nondistended, no guarding, nontender, no rebound, no masses, no hepatomegaly, no splenomegaly, no hernias. NEUROLOGICAL: Gross motor function intact sensory function intact, Appropriate for age. MUSCULOSKELETAL: low back nontender, full range of motion. EXTREMITIES: Nontender, full range of motion. SKIN: Color pale, dry, good skin turgor, no rash, no lacerations, no abrasions, no contusions. LYMPHATICS: Deferred. Course Course Course Narrative: Labs reveal a white count of 1.7, hemoglobin 7.3, hematocrit 22.2, platelets 26. 1 unit of PRBCs as well as platelets were ordered and are currently transfusing. Care of patient transferred to Dr. Castro at end of shift. Quality Measures none Orders Category Date Time Status Fruit Loader Machine Operator NOW Care 09/16/24 21:48 Completed Continuous Pulse Oximetry Care 09/16/24 21:48 Completed Obtain Written Consent For: NOW Care 09/16/24 21:48 Completed Transfuse,blood/blood products NOW Care 09/16/24 21:46 Completed Transfuse,blood/blood products NOW Care 09/16/24 21:58 Completed CBC Stat Lab 09/16/24 18:06 Completed CMP [Comprehensive Metabolic Panel] Stat Lab 09/16/24 18:06 Completed PT [Prothrombin Time with INR] Stat Lab 09/16/24 18:06 Completed PTT [Partial Thromboplastin Time] Stat Lab 09/16/24 18:06 Completed Pheresis Platelets Stat Lab 09/16/24 18:06 Completed Type and Screen Stat Lab 09/16/24 18:06 Completed prbc [Red Blood Cells] Stat Lab 09/16/24 18:06 Completed Acetaminophen Tab [Tylenol Tab] Med 09/16/24 21:46 Discontinued 650 mg PO X1 ONE DiphenhydrAMINE [Benadryl] Med 09/16/24 21:46 Discontinued 25 mg PO X1 ONE Furosemide [Lasix Inj] Med 09/16/24 21:46 Discontinued 40 mg IVP X1 ONE Vital Signs Vital signs: Vital Signs Temperature 98.7 F 09/16/24 17:49 Pulse Rate 84 09/16/24 17:49 Respiratory Rate 18 09/16/24 17:49 Blood Pressure 115/64 09/16/24 17:49 Pulse Oximetry (%) 98 09/16/24 17:49 Oxygen Delivery Method Room Air 09/16/24 17:49 Discharge Plan Plan Patient Disposition: HOME (Self Care) Discharge Disposition comment: Stable and improved Patient condition on transfer: Stable Prescriptions/Referrals Prescriptions/Med Rec: No Action pantoprazole 40 mg tablet,delayed release (DR/EC) 40 mg PO DAILY Patient Comments: TAKE ONE TABLET BY MOUTH EVERY DAY HEARTBURN GASTRIC ACIDITY EVERY ipratropium-albuterol 0.5 mg-3 mg(2.5 mg base)/3 mL Solution For Nebulization 3 ml INHALATION Q6H PRN (Reason: Shortness Of Breath Or Wheezing) fluoxetine 20 mg Capsule 20 mg PO QDAY Eliquis 2.5 mg Tablet 2.5 mg PO BID celecoxib 50 mg Capsule 100 mg PO 1XD Referrals: No Primary/Family,Physician [Primary Care Provider] - In 1 week Problem List Clinical Impression: Pancytopenia Patient/Caregiver Discharge Instructions Education Materials: Thrombocytopenia, ED Anemia, Unspecified (Child) Additional Instructions: Follow-up with your hematology oncologist within 1 week for recheck. You can return to the emergency department sooner if symptoms worsen or if you notice any new, concerning issues. Print Language: Jamaican Stand Alone Forms: Valeria Award Info., Patient Portal Info Letter FAUZIA/TYE Supervising Physician FAUZIA/TYE Supervising Physician: Dr Castro [facility] Narrative Sign Out note: Care of patient transferred to Dr. Castro at end of shift. [facility] hospital course (for use when minimal MDM required): 83-year-old male with a history of myelodysplastic syndrome presents to the ED with a complaint of low hemoglobin and platelet level. He was sent to the ED by the cancer treatment center. He has been complaining of significant fatigue and weakness, worsening recently. His last chemo was 3 weeks ago. He has received multiple transfusions in the past. He denies any recent illness with fever, chills, cough, upper respiratory complaints. He denies any abdominal pain. Exam reveals an elderly male who appears fatigued and weak, pale conjunctiva, skin is pale, warm and dry. Lungs are diminished at the bases, cardiovascular regular rate and rhythm without murmurs. Abdomen is soft and nontender, no rebound or guarding. Moves all extremities well. 1-2+ pitting edema to bilateral lower extremities. Labs reveal a white count of 1.7, hemoglobin 7.3, hematocrit 22.2, platelets 26. 1 unit of PRBCs as well as platelets were ordered and are currently transfusing. Care of patient transferred to Dr. Castro at end of shift. Clinical Information Provided by: patient and spouse Medical Records reviewed [facility] Meds/Rx considered, not ordered None Labs/Rad/Tests considered, not ordered None Chronic Illness/Social Conditions which may negatively complicate care or outcome(s)-explain: None or not applicable and Cancer EKG EKG not done Labs Labs: Interpreted by in Lab(s) Interpretation(s): Labs reveal a white count of 1.7, hemoglobin 7.3, hematocrit 22.2, and platelets 26. Absolute neutrophil count is 0.5. Coags are normal. Blood bank tests: O+ antibody screen negative. Imaging Imaging interpretation: none or see narrative above Medication Administration(s) Medication Administration History Discontinued Medications Acetaminophen (Acetaminophen 325 Mg Tablet) 650 mg PO X1 ONE Stop: 09/16/24 21:47 Last Admin: 09/17/24 03:07 Dose: Not Given Documented By: PINOR Non-Admin Reason: Patient Refused Diphenhydramine HCl (Diphenhydramine 25 Mg Capsule) 25 mg PO X1 ONE Stop: 09/16/24 21:47 Last Admin: 09/17/24 03:07 Dose: Not Given Documented By: PINOR Non-Admin Reason: Patient Refused Furosemide (Furosemide Inj 10 Mg/Ml Vial 2 Ml) 40 mg IVP X1 ONE Stop: 09/16/24 21:47 Last Admin: 09/17/24 03:07 Dose: Not Given Documented By: PINOR Non-Admin Reason: Patient Refused Acetaminophen 650 mg p.o., diphenhydramine 25 mg p.o., furosemide 40 mg IVP. Diagnosis Differential Diagnosis ED Complaint MDM: Anemia 2/2 to myelodysplastic synd, blood loss anemia, iron def anemia
--- NOTE | 2024-09-17 01:33 | PD.EDADDENDU ---
Emergency Room Addendum Addendum Narrative: 0000: Care assumed from Lizette Aragon PA-C, the previous shift emergency physician. Past medical, surgical, social and family history reviewed. Vitals and home medications reviewed. Results and treatment plan discussed. I will assume the care of the patient at this time and will follow the patient, pending completion of blood transfusion. Please refer to the emergency department record for history and examination from initial visit. Observation began at 0000 and was necessary in order to monitor the patient for any adverse effects of the blood/platelet transfusion. Upon reevaluation, observation revealed that the patient should be discharged home. Patient has remained stable while under my care. Observation time ended 0400. Total time of observation 4 hours.
== END 2024-09-17 04:00 | disposition home or self-care (01) ==
PROVIDERS: Nurse Practitioner Family; Emergency Provider Emergency Medicine
DX: D61.818 Other pancytopenia (principal); D46.9 Myelodysplastic syndrome, unspecified
CPT/HCPCS: 36415; 36430; 80053; 85025; 85610; 85730; 86850; 86900; 86901; 86923; 86965; 99285; P9016; P9035

== ENCOUNTER → 2024-09-16 | Outpatient (CLI) | payer MEDICARE, BC, SELFPAY ==
[2024-09-16 16:04] LABS: Basophils % (Auto) 0 % (0-2.5); Eosinophils % (Auto) 1 % (0-10); Hematocrit 21.5 % (41.0-53.0); Immature Granulocytes % (Auto) 1 % (0-0); Immature Granulocytes Auto 0.02 Thou/mm3 (0.00-0.00); Lymphocytes # (Auto) 1.1 Thou/mm3 (1.0-4.8); Lymphocytes % (Auto) 58 % (10-50); Mean Corpuscular Hemoglobin 34.8 pg (25.0-35.0); Mean Corpuscular Volume 105 fL (80-100); Monocytes # (Auto) 0.1 Thou/mm3 (0.0-0.8); Monocytes % (Auto) 7 % (0-12); Neutrophils # (Auto) 0.6 Thou/mm3 (1.8-7.7); Neutrophils % (Auto) 33 % (37-80); Nucleated Red Blood Cell % 0 /100 WBC (0); RDW Standard Deviation 68.9 fL (35.1-43.9); Red Blood Count 2.04 Miln/mm3 (4.50-5.90)
[2024-09-16 16:12] LABS: Hemoglobin 7.1 g/dL (13.5-16.0); White Blood Count 1.8 Thou/mm3 (3.8-10.6)
[2024-09-16 16:13] LABS: Platelet Count 26 Thou/mm3 (140-440)
[2024-09-16 16:30] LABS: Alanine Aminotransferase 18 U/L (10-49); Albumin, Serum 3.8 gm/dL (3.4-4.8); Alkaline Phosphatase 71 U/L (46-116); Anion Gap 8 (7-16); Aspartate Amino Transferase 20 U/L (0-34); BUN/Creatinine Ratio 18 Ratio (12-20); Blood Urea Nitrogen 18 mg/dL (9-23); Calcium 8.2 mg/dL (8.3-10.6); Calcium (Corrected) 8.4 mg/dL (8.5-10.1); Carbon Dioxide 25.1 mMol/L (20.0-31.0); Chloride 110 mMol/L (98-107); Globulin 1.9 gm/dL (2.3-3.5); Glucose 99 mg/dL (74-106); Osmolality,Calculated 286 (275-295); Sodium 143 mMol/L (136-145); Total Protein 5.7 gm/dL (5.7-8.2); eGFR > 60 See Note
[2024-09-16 18:21] LABS: Slide Review Platelets confirmed
[2024-09-16 18:22] LABS: Path Review Blood Smear Sent to Pathologist
== END | disposition home or self-care (01) ==
PROVIDERS: PCP Family Medicine; Referring Provider Nurse Practitioner Family; Visit Provider Nurse Practitioner Family
DX: I82.402 Acute embolism and thrombosis of unspecified deep veins of left lower extremity (principal); D46.9 Myelodysplastic syndrome, unspecified
CPT/HCPCS: 36415; 80053; 85025

== ENCOUNTER 2024-09-24 09:17 | Outpatient (RCR) | payer MEDICARE, BC, SELFPAY ==
[2024-09-20 10:26] LABS: Basophils % (Auto) 0 % (0-2.5); Eosinophils % (Auto) 1 % (0-10); Hematocrit 23.6 % (41.0-53.0); Immature Granulocytes % (Auto) 0 % (0-0); Lymphocytes # (Auto) 0.6 Thou/mm3 (1.0-4.8); Lymphocytes % (Auto) 56 % (10-50); Mean Corpuscular HGB Conc 33.1 g/dl (31.0-37.0); Mean Corpuscular Volume 106 fL (80-100); Monocytes # (Auto) 0.1 Thou/mm3 (0.0-0.8); Monocytes % (Auto) 8 % (0-12); Neutrophils # (Auto) 0.4 Thou/mm3 (1.8-7.7); Neutrophils % (Auto) 35 % (37-80); Nucleated Red Blood Cell # 0.02 Thou/mm3 (0.00-0.00); Nucleated Red Blood Cell % 2 /100 WBC (0); RDW Standard Deviation 68.6 fL (35.1-43.9); Red Blood Count 2.23 Miln/mm3 (4.50-5.90)
[2024-09-20 10:52] LABS: Hemoglobin 7.8 g/dL (13.5-16.0); White Blood Count 1.1 Thou/mm3 (3.8-10.6)
[2024-09-20 10:53] LABS: Platelet Count 36 Thou/mm3 (140-440)
[2024-09-20 11:07] LABS: Alanine Aminotransferase 19 U/L (10-49); Albumin, Serum 3.9 gm/dL (3.4-4.8); Alkaline Phosphatase 73 U/L (46-116); Anion Gap 8 (7-16); Aspartate Amino Transferase 19 U/L (0-34); BUN/Creatinine Ratio 14 Ratio (12-20); Bilirubin,Total 1.1 mg/dL (0.3-1.2); Blood Urea Nitrogen 13 mg/dL (9-23); Calcium 8.2 mg/dL (8.3-10.6); Calcium (Corrected) 8.3 mg/dL (8.5-10.1); Carbon Dioxide 24.9 mMol/L (20.0-31.0); Chloride 108 mMol/L (98-107); Creatinine (Component) 0.9 mg/dL (0.6-1.3); Glucose 104 mg/dL (74-106); Osmolality,Calculated 281 (275-295); Potassium 3.8 mMol/L (3.4-5.1); Sodium 141 mMol/L (136-145); Total Protein 5.9 gm/dL (5.7-8.2); eGFR > 60 See Note
[2024-09-20 13:17] LABS: Slide Review Platelets confirmed
== END 2024-10-09 23:59 | disposition home or self-care (01) ==
LOC: SCTC 09:17
PROVIDERS: PCP Family Medicine; Referring Provider Family Medicine; Visit Provider Internal Medicine Hematology & Oncology
DX: Z51.11 Encounter for antineoplastic chemotherapy (principal); D46.9 Myelodysplastic syndrome, unspecified; Z86.718 Personal history of other venous thrombosis and embolism; Z79.01 Long term (current) use of anticoagulants; F10.11 Alcohol abuse, in remission; Z87.891 Personal history of nicotine dependence
CPT/HCPCS: 80053; 85025; 86850; 86900; 86901; 86923; 96401; 96402; A4216; J9025; P9016

== ENCOUNTER → 2024-09-27 | Outpatient (CLI) | payer MEDICARE, BC, SELFPAY ==
[2024-09-27 08:44] LABS: Basophils % (Auto) 0 % (0-2.5); Eosinophils % (Auto) 0 % (0-10); Hematocrit 27.6 % (41.0-53.0); Immature Granulocytes % (Auto) 5 % (0-0); Immature Granulocytes Auto 0.18 Thou/mm3 (0.00-0.00); Lymphocytes # (Auto) 0.3 Thou/mm3 (1.0-4.8); Lymphocytes % (Auto) 9 % (10-50); Mean Corpuscular HGB Conc 32.6 g/dl (31.0-37.0); Mean Corpuscular Hemoglobin 32.8 pg (25.0-35.0); Mean Corpuscular Volume 101 fL (80-100); Monocytes # (Auto) 0.2 Thou/mm3 (0.0-0.8); Monocytes % (Auto) 5 % (0-12); Neutrophils # (Auto) 2.9 Thou/mm3 (1.8-7.7); Neutrophils % (Auto) 82 % (37-80); Nucleated Red Blood Cell # 0.02 Thou/mm3 (0.00-0.00); Nucleated Red Blood Cell % 1 /100 WBC (0); RDW Standard Deviation 79.6 fL (35.1-43.9); Red Blood Count 2.74 Miln/mm3 (4.50-5.90); White Blood Count 3.5 Thou/mm3 (3.8-10.6)
[2024-09-27 08:53] LABS: Platelet Count 32 Thou/mm3 (140-440)
[2024-09-27 09:33] LABS: Slide Review Platelets confirmed
== END | disposition home or self-care (01) ==
LOC: SCTO 07:20
PROVIDERS: PCP Family Medicine; Referring Provider Internal Medicine Hematology & Oncology; Visit Provider Internal Medicine Hematology & Oncology
DX: I82.402 Acute embolism and thrombosis of unspecified deep veins of left lower extremity (principal); D46.9 Myelodysplastic syndrome, unspecified
CPT/HCPCS: 36415; 85025

== ENCOUNTER → 2024-09-29 | Outpatient (CLI) | payer MEDICARE, BC, SELFPAY ==
[2024-09-29 10:22] LABS: Basophils % (Auto) 0 % (0-2.5); Eosinophils % (Auto) 0 % (0-10); Hematocrit 26.3 % (41.0-53.0); Immature Granulocytes % (Auto) 6 % (0-0); Immature Granulocytes Auto 0.31 Thou/mm3 (0.00-0.00); Lymphocytes # (Auto) 0.6 Thou/mm3 (1.0-4.8); Lymphocytes % (Auto) 12 % (10-50); Mean Corpuscular HGB Conc 32.7 g/dl (31.0-37.0); Mean Corpuscular Hemoglobin 33.2 pg (25.0-35.0); Mean Corpuscular Volume 102 fL (80-100); Monocytes # (Auto) 0.3 Thou/mm3 (0.0-0.8); Monocytes % (Auto) 5 % (0-12); Neutrophils # (Auto) 4.1 Thou/mm3 (1.8-7.7); Neutrophils % (Auto) 77 % (37-80); Nucleated Red Blood Cell # 0.02 Thou/mm3 (0.00-0.00); Nucleated Red Blood Cell % 0 /100 WBC (0); RDW Standard Deviation 79.6 fL (35.1-43.9); Red Blood Count 2.59 Miln/mm3 (4.50-5.90); White Blood Count 5.3 Thou/mm3 (3.8-10.6)
[2024-09-29 10:32] LABS: Hemoglobin 8.6 g/dL (13.5-16.0); Platelet Count 34 Thou/mm3 (140-440)
[2024-09-29 11:41] LABS: Slide Review Platelets confirmed
== END | disposition home or self-care (01) ==
LOC: COPL 09:11
PROVIDERS: PCP Family Medicine; Referring Provider Internal Medicine Hematology & Oncology; Visit Provider Internal Medicine Hematology & Oncology
DX: I82.402 Acute embolism and thrombosis of unspecified deep veins of left lower extremity (principal); D46.9 Myelodysplastic syndrome, unspecified
CPT/HCPCS: 36415; 85025

== ENCOUNTER → 2024-10-05 | Outpatient (CLI) | payer MEDICARE, BC, SELFPAY ==
[2024-10-05 12:06] LABS: Basophils % (Auto) 0 % (0-2.5); Eosinophils % (Auto) 0 % (0-10); Hematocrit 27.9 % (41.0-53.0); Hemoglobin 9.2 g/dL (13.5-16.0); Immature Granulocytes % (Auto) 3 % (0-0); Immature Granulocytes Auto 0.14 Thou/mm3 (0.00-0.00); Lymphocytes % (Auto) 39 % (10-50); Mean Corpuscular Hemoglobin 33.3 pg (25.0-35.0); Mean Corpuscular Volume 101 fL (80-100); Monocytes # (Auto) 0.1 Thou/mm3 (0.0-0.8); Monocytes % (Auto) 2 % (0-12); Neutrophils # (Auto) 2.9 Thou/mm3 (1.8-7.7); Neutrophils % (Auto) 56 % (37-80); Nucleated Red Blood Cell # 0.02 Thou/mm3 (0.00-0.00); Nucleated Red Blood Cell % 0 /100 WBC (0); RDW Standard Deviation 79.3 fL (35.1-43.9); Red Blood Count 2.76 Miln/mm3 (4.50-5.90); White Blood Count 5.1 Thou/mm3 (3.8-10.6)
[2024-10-05 12:08] LABS: Platelet Count 31 Thou/mm3 (140-440); Slide Review Platelets confirmed
== END | disposition home or self-care (01) ==
LOC: SCTO 11:05
PROVIDERS: PCP Family Medicine; Referring Provider Internal Medicine Hematology & Oncology; Visit Provider Internal Medicine Hematology & Oncology
DX: I82.402 Acute embolism and thrombosis of unspecified deep veins of left lower extremity (principal); D46.9 Myelodysplastic syndrome, unspecified
CPT/HCPCS: 36415; 85025

== ENCOUNTER → 2024-10-11 | Outpatient (CLI) | payer MEDICARE, BC, SELFPAY ==
[2024-10-11 13:27] LABS: Basophils % (Auto) 0 % (0-2.5); Eosinophils % (Auto) 0 % (0-10); Immature Granulocytes % (Auto) 3 % (0-0); Immature Granulocytes Auto 0.09 Thou/mm3 (0.00-0.00); Lymphocytes # (Auto) 1.2 Thou/mm3 (1.0-4.8); Lymphocytes % (Auto) 46 % (10-50); Mean Corpuscular HGB Conc 31.9 g/dl (31.0-37.0); Mean Corpuscular Hemoglobin 32.5 pg (25.0-35.0); Mean Corpuscular Volume 102 fL (80-100); Monocytes # (Auto) 0.2 Thou/mm3 (0.0-0.8); Monocytes % (Auto) 8 % (0-12); Neutrophils # (Auto) 1.2 Thou/mm3 (1.8-7.7); Neutrophils % (Auto) 43 % (37-80); Nucleated Red Blood Cell % 0 /100 WBC (0); RDW Standard Deviation 78.7 fL (35.1-43.9); Red Blood Count 2.65 Miln/mm3 (4.50-5.90)
[2024-10-11 13:57] LABS: Hemoglobin 8.6 g/dL (13.5-16.0); Platelet Count 32 Thou/mm3 (140-440); White Blood Count 2.7 Thou/mm3 (3.8-10.6)
[2024-10-11 14:09] LABS: Slide Review Platelets confirmed
== END | disposition home or self-care (01) ==
LOC: SCTO 12:40
PROVIDERS: PCP Family Medicine; Referring Provider Nurse Practitioner Family; Visit Provider Nurse Practitioner Family
DX: D46.9 Myelodysplastic syndrome, unspecified (principal); I82.402 Acute embolism and thrombosis of unspecified deep veins of left lower extremity
CPT/HCPCS: 36415; 85025

== ENCOUNTER → 2024-10-25 | Outpatient (CLI) | payer MEDICARE, BC, SELFPAY ==
[2024-10-25 10:55] LABS: Basophils % (Auto) 0 % (0-2.5); Eosinophils % (Auto) 0 % (0-10); Hematocrit 27.5 % (41.0-53.0); Hemoglobin 9.2 g/dL (13.5-16.0); Immature Granulocytes % (Auto) 2 % (0-0); Immature Granulocytes Auto 0.05 Thou/mm3 (0.00-0.00); Lymphocytes % (Auto) 42 % (10-50); Mean Corpuscular HGB Conc 33.5 g/dl (31.0-37.0); Mean Corpuscular Hemoglobin 32.6 pg (25.0-35.0); Mean Corpuscular Volume 98 fL (80-100); Monocytes # (Auto) 0.2 Thou/mm3 (0.0-0.8); Monocytes % (Auto) 10 % (0-12); Neutrophils # (Auto) 1.1 Thou/mm3 (1.8-7.7); Neutrophils % (Auto) 45 % (37-80); Nucleated Red Blood Cell # 0.02 Thou/mm3 (0.00-0.00); Nucleated Red Blood Cell % 1 /100 WBC (0); RDW Standard Deviation 68.8 fL (35.1-43.9); Red Blood Count 2.82 Miln/mm3 (4.50-5.90)
[2024-10-25 11:07] LABS: Alanine Aminotransferase 16 U/L (10-49); Albumin, Serum 3.9 gm/dL (3.4-4.8); Albumin/Globulin Ratio 2.1 (1.2-2.2); Alkaline Phosphatase 76 U/L (46-116); Anion Gap 7 (7-16); Aspartate Amino Transferase 15 U/L (0-34); BUN/Creatinine Ratio 15 Ratio (12-20); Blood Urea Nitrogen 15 mg/dL (9-23); Calcium 8.9 mg/dL (8.3-10.6); Carbon Dioxide 28.8 mMol/L (20.0-31.0); Chloride 103 mMol/L (98-107); Globulin 1.9 gm/dL (2.3-3.5); Glucose 95 mg/dL (74-106); Osmolality,Calculated 278 (275-295); Potassium 4.6 mMol/L (3.4-5.1); Sodium 139 mMol/L (136-145); Total Protein 5.8 gm/dL (5.7-8.2); eGFR > 60 See Note
[2024-10-25 11:10] LABS: Platelet Count 36 Thou/mm3 (140-440); White Blood Count 2.4 Thou/mm3 (3.8-10.6)
[2024-10-25 13:10] LABS: Slide Review Platelets confirmed
== END | disposition home or self-care (01) ==
LOC: SCTO 09:32
PROVIDERS: PCP Internal Medicine Cardiovascular Disease; Referring Provider Nurse Practitioner Family; Visit Provider Nurse Practitioner Family
DX: I82.402 Acute embolism and thrombosis of unspecified deep veins of left lower extremity (principal); D46.9 Myelodysplastic syndrome, unspecified
CPT/HCPCS: 36415; 80053; 85025

== ENCOUNTER → 2024-11-01 | Outpatient (CLI) | payer MEDICARE, BC, SELFPAY ==
[2024-11-01 11:25] LABS: Basophils % (Auto) 1 % (0-2.5); Eosinophils % (Auto) 0 % (0-10); Hematocrit 23.2 % (41.0-53.0); Immature Granulocytes % (Auto) 1 % (0-0); Immature Granulocytes Auto 0.02 Thou/mm3 (0.00-0.00); Lymphocytes # (Auto) 0.9 Thou/mm3 (1.0-4.8); Lymphocytes % (Auto) 47 % (10-50); Mean Corpuscular HGB Conc 33.2 g/dl (31.0-37.0); Mean Corpuscular Hemoglobin 31.8 pg (25.0-35.0); Mean Corpuscular Volume 96 fL (80-100); Monocytes # (Auto) 0.2 Thou/mm3 (0.0-0.8); Monocytes % (Auto) 12 % (0-12); Neutrophils # (Auto) 0.8 Thou/mm3 (1.8-7.7); Neutrophils % (Auto) 40 % (37-80); Nucleated Red Blood Cell % 0 /100 WBC (0); RDW Standard Deviation 67.2 fL (35.1-43.9); Red Blood Count 2.42 Miln/mm3 (4.50-5.90)
[2024-11-01 11:37] LABS: Alanine Aminotransferase 19 U/L (10-49); Albumin, Serum 3.8 gm/dL (3.4-4.8); Albumin/Globulin Ratio 1.9 (1.2-2.2); Alkaline Phosphatase 72 U/L (46-116); Anion Gap 9 (7-16); Aspartate Amino Transferase 18 U/L (0-34); BUN/Creatinine Ratio 14 Ratio (12-20); Bilirubin,Total 1.1 mg/dL (0.3-1.2); Blood Urea Nitrogen 13 mg/dL (9-23); Calcium (Corrected) 9.2 mg/dL (8.5-10.1); Carbon Dioxide 26.2 mMol/L (20.0-31.0); Chloride 105 mMol/L (98-107); Creatinine (Component) 0.9 mg/dL (0.6-1.3); Glucose 106 mg/dL (74-106); Osmolality,Calculated 279 (275-295); Potassium 4.4 mMol/L (3.4-5.1); Sodium 140 mMol/L (136-145); Total Protein 5.8 gm/dL (5.7-8.2); eGFR > 60 See Note
[2024-11-01 11:50] LABS: Hemoglobin 7.7 g/dL (13.5-16.0); Platelet Count 26 Thou/mm3 (140-440)
[2024-11-01 11:51] LABS: Slide Review Platelets confirmed
== END | disposition home or self-care (01) ==
LOC: SCTO 10:34
PROVIDERS: PCP Internal Medicine Cardiovascular Disease; Referring Provider Nurse Practitioner Family; Visit Provider Nurse Practitioner Family
DX: I82.402 Acute embolism and thrombosis of unspecified deep veins of left lower extremity (principal); D46.9 Myelodysplastic syndrome, unspecified
CPT/HCPCS: 36415; 80053; 85025

== ENCOUNTER 2024-11-02 11:11 | Outpatient (RCR) | payer MEDICARE, BC, SELFPAY ==
[2024-10-18 10:03] LABS: Basophils % (Auto) 0 % (0-2.5); Eosinophils % (Auto) 0 % (0-10); Immature Granulocytes % (Auto) 2 % (0-0); Immature Granulocytes Auto 0.04 Thou/mm3 (0.00-0.00); Lymphocytes # (Auto) 0.3 Thou/mm3 (1.0-4.8); Lymphocytes % (Auto) 16 % (10-50); Mean Corpuscular HGB Conc 33.3 g/dl (31.0-37.0); Mean Corpuscular Hemoglobin 32.8 pg (25.0-35.0); Mean Corpuscular Volume 99 fL (80-100); Monocytes # (Auto) 0.1 Thou/mm3 (0.0-0.8); Monocytes % (Auto) 5 % (0-12); Neutrophils # (Auto) 1.6 Thou/mm3 (1.8-7.7); Neutrophils % (Auto) 78 % (37-80); Nucleated Red Blood Cell # 0.02 Thou/mm3 (0.00-0.00); Nucleated Red Blood Cell % 1 /100 WBC (0); RDW Standard Deviation 76.4 fL (35.1-43.9); Red Blood Count 2.01 Miln/mm3 (4.50-5.90)
[2024-10-18 10:13] LABS: Alanine Aminotransferase 15 U/L (10-49); Albumin, Serum 3.8 gm/dL (3.4-4.8); Albumin/Globulin Ratio 1.8 (1.2-2.2); Alkaline Phosphatase 63 U/L (46-116); Anion Gap 9 (7-16); BUN/Creatinine Ratio 15 Ratio (12-20); Blood Urea Nitrogen 15 mg/dL (9-23); Calcium 8.6 mg/dL (8.3-10.6); Calcium (Corrected) 8.8 mg/dL (8.5-10.1); Carbon Dioxide 25.3 mMol/L (20.0-31.0); Chloride 107 mMol/L (98-107); Globulin 2.1 gm/dL (2.3-3.5); Glucose 119 mg/dL (74-106); Osmolality,Calculated 283 (275-295); Sodium 141 mMol/L (136-145); Total Protein 5.9 gm/dL (5.7-8.2); eGFR > 60 See Note
[2024-10-18 10:20] LABS: Platelet Count 24 Thou/mm3 (140-440)
[2024-10-18 10:21] LABS: Hematocrit 19.8 % (41.0-53.0); Hemoglobin 6.6 g/dL (13.5-16.0)
[2024-10-18 11:58] LABS: Slide Review Platelets confirmed
[2024-10-18 11:59] LABS: Path Review Blood Smear Sent to Pathologist
[2024-10-19 09:36] LABS: Hematocrit 23.3 % (41.0-53.0)
[2024-10-21 09:26] LABS: Basophils % (Auto) 0 % (0-2.5); Eosinophils % (Auto) 0 % (0-10); Hematocrit 24.1 % (41.0-53.0); Immature Granulocytes % (Auto) 1 % (0-0); Immature Granulocytes Auto 0.04 Thou/mm3 (0.00-0.00); Lymphocytes # (Auto) 1.9 Thou/mm3 (1.0-4.8); Lymphocytes % (Auto) 60 % (10-50); Mean Corpuscular Hemoglobin 32.4 pg (25.0-35.0); Mean Corpuscular Volume 95 fL (80-100); Monocytes # (Auto) 0.2 Thou/mm3 (0.0-0.8); Monocytes % (Auto) 6 % (0-12); Neutrophils % (Auto) 33 % (37-80); Nucleated Red Blood Cell % 0 /100 WBC (0); RDW Standard Deviation 67.6 fL (35.1-43.9); Red Blood Count 2.53 Miln/mm3 (4.50-5.90); White Blood Count 3.1 Thou/mm3 (3.8-10.6)
[2024-10-21 09:58] LABS: Hemoglobin 8.2 g/dL (13.5-16.0); Platelet Count 18 Thou/mm3 (140-440)
[2024-10-21 10:47] LABS: Slide Review Platelets confirmed
--- NOTE | 2024-11-01 00:42 | CTCFLWUP_ITS ---
Patient: MICHAEL RAMSAY : 1940 Page 2 of 3 FOLLOW UP NOTE DATE OF SERVICE: 10/26/2024 NAME: MICHAEL RAMSAY ACCOUNT: [id number] : 1940 AGE: 83 INTERVAL HISTORY: Michael Ramsay, an elderly male with myelodysplastic syndrome (MDS), presented with bruising from subcutaneous Vidaza injections and recurrent sinus symptoms. 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 Recent bone marrow biopsy showed progression with blast perc entage increasing from 3% to 10%, indicating evolution toward leukemia. Treatment plan includes transitioning from subcutaneous to intravenous Vidaza administration, port placement, transfusion of 2 units of packed red blood cells, continuing erythropoietin, considering venetoclax addition, and prescri vane levofloxacin for sinusitis. Chief Complaint Bruising and pain from subcutaneous injections, worsening sinus symptoms after running out of antibiotics History of Present Illness Michael Ramsay, a male patient with a history of myelodysplastic syndrome (MDS), presents for follow-up of his condition and management of treatment- related side effects. The patient reports significant bruising and pain at injection sites from his current subcutaneous Vidaza treatments. Mr. Ramsay expresses concern about the extensive bruising on his stomach from the subcutaneous injections, stating That's bruised. A lot of bleeding there. They go in too fast. He describes the injections as very painful, particularly when the medication is administered quickly or in large volumes under the skin. The patient also mentions feeling better recently but running out of antibiotics, suggesting a recent infection. Additionally, Mr. Ramsay reports experiencing allergy symptoms, including nighttime sneezing and nasal congestion. He states, I'm starting to sneeze at night again and believes he needs additional antibiotics to fully resolve these symptoms. He previously received a course of antibiotics, likely amoxicillin, taken twice daily, but did not complete the full course. The patient's MDS appears to be progressing, with recent bone marrow biopsy results showing an increase in blast percentage from 3% to 10%. He is currently receiving Vidaza injections five days a week and erythropoietin. Mr. Ramsay expresses openness to treatment modifications, including switching to intravenous administration and potentially starting venetoclax tablets. Medications and Supplements - Vidaza - Given as subcutaneous injections in the stomach - Administered 5 days in a week - Causing significant bruising and pain at injection sites - Erythropoietin - Given as injections - Antibiotics - Recently completed a course - Ran out and symptoms returned Review of Systems General: Positive for fatigue. Skin: Positive for bruising and bleeding. HEENT: Positive for runny nose and sneezing. Respiratory: Positive for shortness of breath. Objective: Physical Examination Abdomen: Multiple bruises noted on the stomach area. Skin: Visible bruising on the abdomen. Multiple injection site bruises observed. Laboratory, Imaging, and Diagnostic Test Results - Bone marrow biopsy (current): - Blast percentage: 10% - Findings: Compatible with high-grade myeloid neoplasm, abnormal myeloid maturation - Previous bone marrow biopsy ([facility]): - Blast percentage: 3% - Diagnosis: MDS with megakaryocyte dysplasia, early erythroid dysplasia - Cytogenetics: Deletion 7q and 20q - Current CBC: - Platelets: Low (specific value not provided) - Current blood counts: - Hemoglobin: Low (specific value not provided) . ONCOLOGY HISTORY:?CloneBlock Oncology Hx? Myelodysplastic syndrome with IPSS?R score of 3, risk category intermediate Currently on azacitidine (12/16/2022??). DIAGNOSIS: Myelodysplastic syndrome, unspecified [ICD10] D46.9?CloneBlock Dx? Myelodysplastic syndrome with IPSS?R score of 3, risk category intermediate DATE OF DIAGNOSIS: 11/13/2022 STAGE/TNM: Myelodysplastic syndrome with IPSS?R score of 3, risk category intermediate TREATMENT HISTORY: Care?Plan Start?Date Cycle Day Intent Azacitadine?sq?d1-5 12/16/2022 1 28 Palliative Azacytadine?sq?days?1-5 05/31/2024 1 28 Maintenance HISTORY OF PRESENT ILLNESS: Michael Ramsay is a 83-year-old ENG speaking male with remote history of cigarette smoking as well as alcohol abuse is referred to hematology clinic for anemia and thrombocytopenia. About 10 years ago patient apparently had an unprovoked left lower extremity DVT. About 8 years ago he had right knee surgery. At that time he developed left lower extremity DVT again. He also has remote history of left upper extremity DVT. Currently Mr. Ramsay is on indefinite anticoagulation with apixaban. 07/22/2022: WBC 3.2, ANC 2.1, hemoglobin 9.1, MCV 105, platelets 83,000. 11/13/2022: Mr. Ramsay had bone marrow biopsy and aspiration was done due to macrocytic anemia and thrombocytopenia. 12/13/2022: WBC 2.6, ANC 1.5, hemoglobin 7.8, MCV 104, platelets 57,000. 12/16/2022 - 04/18/2023: Mr. Ramsay had 5 cycles of Vidaza 05/13/2023: WBC 3.2, ANC 1.8, hemoglobin 9.6, MCV 105, platelets 103,000. 08/22/2023: Mr. Ramsay received 9 cycles of Vidaza 09/01/2023: WBC 3.3, ANC 2.0, hemoglobin 10.2, MCV 100, platelets 86,000. 10/13/2023: WBC 2.2, ANC 1.7, hemoglobin 10.9, MCV 101, platelets 143,000. OTHER MEDICAL HISTORY/CONDITIONS: Asthma Hx?DVT GERD Chronic?pain Cholecystectomy - 2007 Right TKA - 2017 [facility] carpal tunnel surgery - 30 yrs ago [facility] cataract surgery [facility] Lasik surgery Retinal repair right eye FAMILY HISTORY: Cancer?History:?Denies Patient?denies?family?cancer?history. 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 Tobacco Use:?Quit 1964 - smoked 1 PPD off/on x 10yrs ETOH Use:?Drinks beer almost daily x 15 yrs Drug?Note:?Denies Social?History?Note:?Lives?with? MEDICATIONS: 1. CeleBREX - 50 mg 1 Capsule Daily 2. cyanocobalamin (vitamin B-12) - 1,000 mcg 1 tab Daily 3. dexamethasone - 4 mg 1 tab daily 5 days per month with Vidaza 4. levoFLOXacin - 750 mg 1 tab Daily 5. Protonix - 40 mg Daily 6. sildenafiL - 25 mg 1 tab As needed 7. Singulair - 10 mg 1 tab Daily?Palabra Meds? Medications Last Reconciled by Letitia Flannery MA on 10/26/2024 ALLERGIES: morphine REVIEW OF SYSTEMS: A complete 14-point review of systems was performed and is negative except as noted in interval history. PHYSICAL EXAMINATION:?CloneBlock PE? VITAL SIGNS: Temperature?98, B/P?98/68, Oxygen?Saturation?98% PAIN: 2 - Mild pain ECOG Performance Status: 0 - Asymptomatic and fully active Not done visit was telemedicine. LABORATORY DATA: I have personally reviewed and interpreted each of the patient?s relevant lab tests, abnormal findings are below: Date 10/19/24 10/21/24 10/25/24 ??WHITE?BLOOD?COUNT?(Thou/mm3) ? 3.1?L 2.4?L ??RED?BLOOD?COUNT?(Miln/mm3) ? 2.53?L 2.82?L ??HEMOGLOBIN?(gm/dl) 8.0?L 8.2?L 9.2?L ??HEMATOCRIT?(%) 23.3?L 24.1?L 27.5?L ??PLATELET?COUNT?(Thou/mm3) ? 18?LL 36?L ??NEUTROPHILS?%,?AUTO?(%) ? 33?L 45 ??LYMPH?%,?AUTO?(%) ? 60?H 42 ??NEUTROPHILS,?AUTO?(Thou/mm3) ? 1.0?L 1.1?L ??GLUCOSE,RANDOM?(mg/dL) ? ? 95 ??BLOOD?UREA?NITROGEN?(mg/dL) ? ? 15 ??CREATININE?(mg/dL) ? ? 1.00 ??SODIUM?(mmol/L) ? ? 139 ??POTASSIUM?(mmol/L) ? ? 4.6 ??CHLORIDE?(mmol/L) ? ? 103 ??CrCl?(CandG)?(ml/min) ? ? 61.42 ??AST/SGOT?(Unit/L) ? ? 15 ??ALT/SGPT?(Unit/L) ? ? 16 ??ALKALINE?PHOSPHATASE?(Unit/L) ? ? 76 ??BILIRUBIN,?TOTAL?(mg/dL) ? ? 1.0 ??PROTEIN?TOTAL?(gm/dl) ? ? 5.8 ??ALBUMIN,?SERUM?(gm/dl) ? ? 3.9 ??GLOBULIN?(gm/dl) ? ? 1.9?L ??ALBUMIN/GLOBULIN?RATIO ? ? 2.1 ??CALCIUM,?SERUM?(mg/dL) ? ? 8.9 ??CALCIUM?SERUM?(CORRECTED)?(mg/dL) ? ? 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 ?RufinoHarrykimberlyn Usha Assessment/Plan? Myelodysplastic Syndrome (MDS) Assessment: Patient is currently undergoing treatment for MDS with azacitidine (Vidaza) on a 5-day monthly regimen. Recent lab results show fluctuating platelet counts (45 to 90, now 57), hemoglobin of 9.9, and white blood cell count of 3.2. The treatment appears to be effective, as the patient has not required blood transfusions recently, except for one unit of platelets last month due to low platelet count. A bone marrow biopsy is needed for accurate assessment of cancer progression, as the previous specimen from [place] was inadequate. 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 Bone marrow biopsy reveals relatively increased atypical blast count of 10%, up from 3% in previous [facility] bone marrow review. This indicates progression of MDS, potentially evolving into leukemia. Previous findings included megakaryocyte dysplasia, early erythroid dysplasia, and genetic abnormalities (deletion 7q and 20q). Current presentation includes low blood counts and significant bruising from subcutaneous medication injections, suggesting severe thrombocytopenia. Plan: - Transition from subcutaneous to intravenous administration of Vidaza (azacitidine) - Arrange for port placement for easier medication administration and blood draws - Transfuse 2 units of packed red blood cells - First unit to be given tomorrow, second unit on a subsequent day - Consider adding venetoclax tablets to treatment regimen - Continue erythropoietin injections - Monitor for further disease progression and adjust treatment as needed Thrombocytopenia with Bruising Assessment: Patient presents with significant bruising on the abdomen from subcutaneous injections, indicating severe thrombocytopenia. This is likely secondary to the underlying MDS. The extent of bruising suggests that subcutaneous injections are no longer appropriate for this patient. Plan: - Transition to intravenous medication administration - Arrange for port placement to minimize bruising and discomfort - Monitor platelet counts closely - Administer platelet transfusions only when clinically necessary (e.g., platelet count below 10,000 or signs of bleeding) - Transfuse platelets as per requirement of interventional radiology to place port Recurrent Sinusitis Assessment: Patient reports recurrence of sinus symptoms including nighttime sneezing and nasal discharge after completing a course of antibiotics (likely amoxicillin) prescribed by Dr. Mir. The initial improvement followed by recurrence suggests either inadequate duration of treatment or possibly antibiotic-resistant organisms. Plan: - Prescribe levofloxacin (dosage and duration not specified) - Advise patient to take medication with food - Follow up to assess response to new antibiotic regimen 1. History of alcohol abuse, cigarette smoking in the past. 2. History of recurrent left lower extremity DVT. Patient's platelets are very low Advised to stop taking Eliquis until platelets are above 50 CBC every 2 weeks to monitor platelet level. Order # Description [id number] MD Follow Up [id number] CBC with Auto Diff [id number] CBC with Auto Diff + Comprehensive Metabolic Panel - 12 RETURN TO CLINIC: BILLING AND COMPLIANCE: I reviewed external records from providers outside my specialty as summarized above. I spent a total of 50 minutes on this patient?s care on the day of their visit excluding time spent related to any billed procedures. This time includes time spent with the patient as well as time spent documenting in the medical record, reviewing patients records and tests, obtaining history, placing orders, communicating with other healthcare professionals, counseling the patient, family or caregiver, and/or care coordination for the diagnoses above. Electronically Signed by: Larry Kerr MD T: 12:39 AM CC: Deborah?Janusz? PCP: Ronny Schmidt Referring: Ronny Schmidt This document was completed utilizing speech recognition software. Grammatical errors, random word insertions, pronoun errors, and incomplete sentences are an occasional consequence of this system due to software limitations, ambient noise, and hardware issues. Any formal questions or concerns about the content, text or information contained within the body of this dictation should be directly addressed to the provider for clarification.
== END 2024-11-08 23:59 | disposition home or self-care (01) ==
LOC: SCTC 11:11
PROVIDERS: PCP Family Medicine; Referring Provider Family Medicine; Visit Provider Internal Medicine Hematology & Oncology
DX: Z51.11 Encounter for antineoplastic chemotherapy (principal); D46.9 Myelodysplastic syndrome, unspecified; D69.6 Thrombocytopenia, unspecified; J32.9 Chronic sinusitis, unspecified; Z86.718 Personal history of other venous thrombosis and embolism; Z79.01 Long term (current) use of anticoagulants; Z87.891 Personal history of nicotine dependence; F10.11 Alcohol abuse, in remission
CPT/HCPCS: 36415; 36430; 80053; 85014; 85018; 85025; 86850; 86900; 86901; 86923; 86965; 96401; 96413; 99212; A4216; J7040; J9025; P9016; P9035; G0463

== ENCOUNTER → 2024-11-08 | Outpatient (CLI) | payer MEDICARE, BC, SELFPAY ==
[2024-11-08 11:36] LABS: Basophils % (Auto) 0 % (0-2.5); Eosinophils % (Auto) 0 % (0-10); Immature Granulocytes % (Auto) 4 % (0-0); Immature Granulocytes Auto 0.06 Thou/mm3 (0.00-0.00); Lymphocytes # (Auto) 0.8 Thou/mm3 (1.0-4.8); Lymphocytes % (Auto) 52 % (10-50); Mean Corpuscular HGB Conc 33.8 g/dl (31.0-37.0); Mean Corpuscular Hemoglobin 31.4 pg (25.0-35.0); Mean Corpuscular Volume 93 fL (80-100); Monocytes # (Auto) 0.2 Thou/mm3 (0.0-0.8); Monocytes % (Auto) 13 % (0-12); Neutrophils # (Auto) 0.5 Thou/mm3 (1.8-7.7); Neutrophils % (Auto) 31 % (37-80); Nucleated Red Blood Cell % 0 /100 WBC (0); RDW Standard Deviation 63.6 fL (35.1-43.9); Red Blood Count 2.26 Miln/mm3 (4.50-5.90)
[2024-11-08 11:49] LABS: Alanine Aminotransferase 10 U/L (10-49); Albumin, Serum 3.9 gm/dL (3.4-4.8); Albumin/Globulin Ratio 2.3 (1.2-2.2); Alkaline Phosphatase 67 U/L (46-116); Anion Gap 7 (7-16); Aspartate Amino Transferase 13 U/L (0-34); BUN/Creatinine Ratio 15 Ratio (12-20); Bilirubin,Total 1.2 mg/dL (0.3-1.2); Blood Urea Nitrogen 15 mg/dL (9-23); Calcium 9.2 mg/dL (8.3-10.6); Calcium (Corrected) 9.3 mg/dL (8.5-10.1); Carbon Dioxide 27.5 mMol/L (20.0-31.0); Chloride 102 mMol/L (98-107); Globulin 1.7 gm/dL (2.3-3.5); Glucose 107 mg/dL (74-106); Osmolality,Calculated 272 (275-295); Potassium 3.8 mMol/L (3.4-5.1); Sodium 136 mMol/L (136-145); Total Protein 5.6 gm/dL (5.7-8.2); eGFR > 60 See Note
[2024-11-08 11:54] LABS: White Blood Count 1.6 Thou/mm3 (3.8-10.6)
[2024-11-08 11:55] LABS: Hemoglobin 7.1 g/dL (13.5-16.0); Platelet Count 13 Thou/mm3 (140-440)
[2024-11-08 11:59] LABS: Slide Review Platelets confirmed
== END | disposition home or self-care (01) ==
LOC: COPL 10:30
PROVIDERS: PCP Internal Medicine Cardiovascular Disease; Referring Provider Nurse Practitioner Family; Visit Provider Nurse Practitioner Family
DX: I82.402 Acute embolism and thrombosis of unspecified deep veins of left lower extremity (principal); D46.9 Myelodysplastic syndrome, unspecified
CPT/HCPCS: 36415; 80053; 85025

== ENCOUNTER → 2024-11-10 | Outpatient (CLI) | payer MEDICARE, BC, SELFPAY ==
[2024-11-09 16:23] VITALS: BMI 28.0
[2024-11-10 12:19] LABS: Basophils # (Auto) 0.0 Thou/mm3 (0.0-0.2); Basophils % (Auto) 0 % (0-2.5); Eosinophils # (Auto) 0.0 Thou/mm3 (0.0-0.5); Eosinophils % (Auto) 0 % (0-10); Hematocrit 22.0 % (41.0-53.0); Immature Granulocytes Auto 0.03 Thou/mm3 (0.00-0.00); Lymphocytes # (Auto) 0.8 Thou/mm3 (1.0-4.8); Lymphocytes % (Auto) 56 % (10-50); Mean Corpuscular HGB Conc 32.3 g/dl (31.0-37.0); Mean Corpuscular Hemoglobin 30.9 pg (25.0-35.0); Mean Corpuscular Volume 96 fL (80-100); Monocytes # (Auto) 0.1 Thou/mm3 (0.0-0.8); Monocytes % (Auto) 6 % (0-12); Neutrophils # (Auto) 0.5 Thou/mm3 (1.8-7.7); Neutrophils % (Auto) 36 % (37-80); Nucleated Red Blood Cell # 0.00 Thou/mm3 (0.00-0.00); Nucleated Red Blood Cell % 0 /100 WBC (0); RDW Standard Deviation 65.8 fL (35.1-43.9); Red Blood Count 2.30 Miln/mm3 (4.50-5.90)
[2024-11-10 12:22] LABS: Hemoglobin 7.1 g/dL (13.5-16.0); Platelet Count 39 Thou/mm3 (140-440); White Blood Count 1.4 Thou/mm3 (3.8-10.6)
[2024-11-10 12:23] LABS: INR 1.1 (0.9-1.3); Partial Thromboplastin Time 32.5 Seconds (22.0-36.0); Prothrombin Time 11.5 Seconds (9.0-12.2)
[2024-11-10 14:25] LABS: Slide Review Platelets confirmed
== END | disposition home or self-care (01) ==
LOC: SIRX 11-11 07:45
PROVIDERS: Radiology Diagnostic Radiology; PCP Internal Medicine Hematology & Oncology; Referring Provider Internal Medicine Hematology & Oncology; Visit Provider Internal Medicine Hematology & Oncology
DX: Z53.8 Procedure and treatment not carried out for other reasons (principal)
CPT/HCPCS: 36415; 85025; 85610; 85730; 86965; P9035

== ENCOUNTER → 2024-11-15 | Outpatient (CLI) | payer MEDICARE, BC, SELFPAY ==
[2024-11-15 08:39] LABS: Alanine Aminotransferase 14 U/L (10-49); Albumin, Serum 3.9 gm/dL (3.4-4.8); Albumin/Globulin Ratio 2.0 (1.2-2.2); Alkaline Phosphatase 67 U/L (46-116); Anion Gap 9 (7-16); Aspartate Amino Transferase 14 U/L (0-34); BUN/Creatinine Ratio 19 Ratio (12-20); Bilirubin,Total 0.9 mg/dL (0.3-1.2); Blood Urea Nitrogen 15 mg/dL (9-23); Calcium 9.3 mg/dL (8.3-10.6); Calcium (Corrected) 9.4 mg/dL (8.5-10.1); Carbon Dioxide 27.2 mMol/L (20.0-31.0); Chloride 108 mMol/L (98-107); Creatinine (Component) 0.8 mg/dL (0.6-1.3); Globulin 2.0 gm/dL (2.3-3.5); Glucose 109 mg/dL (74-106); Osmolality,Calculated 288 (275-295); Potassium 4.5 mMol/L (3.4-5.1); Sodium 144 mMol/L (136-145); Total Protein 5.9 gm/dL (5.7-8.2); eGFR > 60 See Note
[2024-11-15 09:26] LABS: Basophils # (Auto) 0.0 Thou/mm3 (0.0-0.2); Basophils % (Auto) 0 % (0-2.5); Eosinophils # (Auto) 0.0 Thou/mm3 (0.0-0.5); Eosinophils % (Auto) 0 % (0-10); Hematocrit 25.5 % (41.0-53.0); Immature Granulocytes Auto 0.01 Thou/mm3 (0.00-0.00); Lymphocytes # (Auto) 0.8 Thou/mm3 (1.0-4.8); Lymphocytes % (Auto) 53 % (10-50); Mean Corpuscular HGB Conc 32.9 g/dl (31.0-37.0); Mean Corpuscular Hemoglobin 30.7 pg (25.0-35.0); Mean Corpuscular Volume 93 fL (80-100); Monocytes # (Auto) 0.2 Thou/mm3 (0.0-0.8); Monocytes % (Auto) 14 % (0-12); Neutrophils # (Auto) 0.5 Thou/mm3 (1.8-7.7); Neutrophils % (Auto) 32 % (37-80); Nucleated Red Blood Cell # 0.00 Thou/mm3 (0.00-0.00); Nucleated Red Blood Cell % 0 /100 WBC (0); RDW Standard Deviation 64.0 fL (35.1-43.9); Red Blood Count 2.74 Miln/mm3 (4.50-5.90)
[2024-11-15 09:31] LABS: Hemoglobin 8.4 g/dL (13.5-16.0); Platelet Count 32 Thou/mm3 (140-440); White Blood Count 1.5 Thou/mm3 (3.8-10.6)
[2024-11-15 10:08] LABS: Slide Review Platelets confirmed
== END | disposition home or self-care (01) ==
LOC: COPL 07:36
PROVIDERS: PCP Internal Medicine Cardiovascular Disease; Referring Provider Nurse Practitioner Family; Visit Provider Nurse Practitioner Family
DX: I82.402 Acute embolism and thrombosis of unspecified deep veins of left lower extremity (principal); D46.9 Myelodysplastic syndrome, unspecified
CPT/HCPCS: 36415; 80053; 85025

== ENCOUNTER → 2024-11-22 | Outpatient (CLI) | payer MEDICARE, BC, SELFPAY ==
[2024-11-22 11:16] LABS: Basophils # (Auto) 0.0 Thou/mm3 (0.0-0.2); Basophils % (Auto) 0 % (0-2.5); Eosinophils # (Auto) 0.0 Thou/mm3 (0.0-0.5); Eosinophils % (Auto) 0 % (0-10); Hematocrit 25.0 % (41.0-53.0); Immature Granulocytes Auto 0.04 Thou/mm3 (0.00-0.00); Lymphocytes # (Auto) 1.1 Thou/mm3 (1.0-4.8); Lymphocytes % (Auto) 48 % (10-50); Mean Corpuscular HGB Conc 32.4 g/dl (31.0-37.0); Mean Corpuscular Hemoglobin 30.1 pg (25.0-35.0); Mean Corpuscular Volume 93 fL (80-100); Monocytes # (Auto) 0.2 Thou/mm3 (0.0-0.8); Monocytes % (Auto) 9 % (0-12); Neutrophils # (Auto) 1.0 Thou/mm3 (1.8-7.7); Neutrophils % (Auto) 41 % (37-80); Nucleated Red Blood Cell # 0.00 Thou/mm3 (0.00-0.00); Nucleated Red Blood Cell % 0 /100 WBC (0); RDW Standard Deviation 63.7 fL (35.1-43.9); Red Blood Count 2.69 Miln/mm3 (4.50-5.90)
[2024-11-22 11:26] LABS: Platelet Count 23 Thou/mm3 (140-440); White Blood Count 2.4 Thou/mm3 (3.8-10.6)
[2024-11-22 11:27] LABS: Slide Review Platelets confirmed
[2024-11-22 11:28] LABS: Hemoglobin 8.1 g/dL (13.5-16.0)
[2024-11-22 11:39] LABS: Alanine Aminotransferase 14 U/L (10-49); Albumin, Serum 3.8 gm/dL (3.4-4.8); Albumin/Globulin Ratio 2.0 (1.2-2.2); Alkaline Phosphatase 65 U/L (46-116); Anion Gap 10 (7-16); Aspartate Amino Transferase 14 U/L (0-34); BUN/Creatinine Ratio 17 Ratio (12-20); Bilirubin,Total 1.1 mg/dL (0.3-1.2); Blood Urea Nitrogen 15 mg/dL (9-23); Calcium 8.7 mg/dL (8.3-10.6); Calcium (Corrected) 8.9 mg/dL (8.5-10.1); Carbon Dioxide 27.2 mMol/L (20.0-31.0); Chloride 104 mMol/L (98-107); Creatinine (Component) 0.9 mg/dL (0.6-1.3); Globulin 1.9 gm/dL (2.3-3.5); Glucose 93 mg/dL (74-106); Osmolality,Calculated 282 (275-295); Potassium 4.4 mMol/L (3.4-5.1); Sodium 141 mMol/L (136-145); Total Protein 5.7 gm/dL (5.7-8.2); eGFR > 60 See Note
== END | disposition home or self-care (01) ==
LOC: SCTO 09:43
PROVIDERS: PCP Internal Medicine Cardiovascular Disease; Referring Provider Internal Medicine Hematology & Oncology; Visit Provider Internal Medicine Hematology & Oncology
DX: I82.402 Acute embolism and thrombosis of unspecified deep veins of left lower extremity (principal); D46.9 Myelodysplastic syndrome, unspecified
CPT/HCPCS: 36415; 80053; 85025

== ENCOUNTER → 2024-11-29 | Outpatient (CLI) | payer MEDICARE, BC, SELFPAY ==
[2024-11-29 11:31] LABS: Alanine Aminotransferase 13 U/L (10-49); Albumin, Serum 3.7 gm/dL (3.4-4.8); Albumin/Globulin Ratio 1.9 (1.2-2.2); Alkaline Phosphatase 64 U/L (46-116); Anion Gap 8 (7-16); Aspartate Amino Transferase 13 U/L (0-34); BUN/Creatinine Ratio 19 Ratio (12-20); Bilirubin,Total 0.9 mg/dL (0.3-1.2); Blood Urea Nitrogen 15 mg/dL (9-23); Calcium 9.0 mg/dL (8.3-10.6); Calcium (Corrected) 9.2 mg/dL (8.5-10.1); Carbon Dioxide 26.0 mMol/L (20.0-31.0); Chloride 105 mMol/L (98-107); Creatinine (Component) 0.8 mg/dL (0.6-1.3); Globulin 2.0 gm/dL (2.3-3.5); Glucose 110 mg/dL (74-106); Osmolality,Calculated 279 (275-295); Potassium 4.5 mMol/L (3.4-5.1); Sodium 139 mMol/L (136-145); Total Protein 5.7 gm/dL (5.7-8.2); eGFR > 60 See Note
[2024-11-29 11:38] LABS: Basophils # (Auto) 0.0 Thou/mm3 (0.0-0.2); Basophils % (Auto) 0 % (0-2.5); Eosinophils # (Auto) 0.0 Thou/mm3 (0.0-0.5); Eosinophils % (Auto) 0 % (0-10); Hematocrit 21.2 % (41.0-53.0); Immature Granulocytes Auto 0.03 Thou/mm3 (0.00-0.00); Lymphocytes # (Auto) 0.9 Thou/mm3 (1.0-4.8); Lymphocytes % (Auto) 29 % (10-50); Mean Corpuscular HGB Conc 33.5 g/dl (31.0-37.0); Mean Corpuscular Hemoglobin 30.6 pg (25.0-35.0); Mean Corpuscular Volume 91 fL (80-100); Monocytes # (Auto) 0.5 Thou/mm3 (0.0-0.8); Monocytes % (Auto) 16 % (0-12); Neutrophils # (Auto) 1.7 Thou/mm3 (1.8-7.7); Neutrophils % (Auto) 54 % (37-80); Nucleated Red Blood Cell # 0.00 Thou/mm3 (0.00-0.00); Nucleated Red Blood Cell % 0 /100 WBC (0); RDW Standard Deviation 62.1 fL (35.1-43.9); Red Blood Count 2.32 Miln/mm3 (4.50-5.90); White Blood Count 3.1 Thou/mm3 (3.8-10.6)
[2024-11-29 11:49] LABS: Hemoglobin 7.1 g/dL (13.5-16.0)
[2024-11-29 11:50] LABS: Platelet Count 14 Thou/mm3 (140-440)
[2024-11-29 13:05] LABS: Slide Review Platelets confirmed
== END | disposition home or self-care (01) ==
PROVIDERS: PCP Internal Medicine Cardiovascular Disease; Referring Provider Internal Medicine Hematology & Oncology; Visit Provider Internal Medicine Hematology & Oncology
DX: I82.402 Acute embolism and thrombosis of unspecified deep veins of left lower extremity (principal); D46.9 Myelodysplastic syndrome, unspecified; D64.9 Anemia, unspecified
CPT/HCPCS: 36415; 80053; 85025

== ENCOUNTER 2024-12-08 08:13 | Outpatient (RCR) | payer MEDICARE, BC, SELFPAY ==
[2024-11-11 09:39] LABS: Basophils # (Auto) 0.0 Thou/mm3 (0.0-0.2); Basophils % (Auto) 1 % (0-2.5); Eosinophils # (Auto) 0.0 Thou/mm3 (0.0-0.5); Eosinophils % (Auto) 0 % (0-10); Immature Granulocytes Auto 0.13 Thou/mm3 (0.00-0.00); Lymphocytes # (Auto) 0.6 Thou/mm3 (1.0-4.8); Lymphocytes % (Auto) 41 % (10-50); Mean Corpuscular HGB Conc 33.7 g/dl (31.0-37.0); Mean Corpuscular Hemoglobin 31.8 pg (25.0-35.0); Mean Corpuscular Volume 94 fL (80-100); Monocytes # (Auto) 0.2 Thou/mm3 (0.0-0.8); Monocytes % (Auto) 12 % (0-12); Neutrophils # (Auto) 0.5 Thou/mm3 (1.8-7.7); Neutrophils % (Auto) 37 % (37-80); Nucleated Red Blood Cell # 0.00 Thou/mm3 (0.00-0.00); Nucleated Red Blood Cell % 0 /100 WBC (0); RDW Standard Deviation 64.0 fL (35.1-43.9); Red Blood Count 1.98 Miln/mm3 (4.50-5.90)
[2024-11-11 10:01] LABS: White Blood Count 1.4 Thou/mm3 (3.8-10.6)
[2024-11-11 10:02] LABS: Hematocrit 18.7 % (41.0-53.0); Hemoglobin 6.3 g/dL (13.5-16.0); Platelet Count 63 Thou/mm3 (140-440)
[2024-11-11 11:54] LABS: Slide Review Platelets confirmed
[2024-12-08 09:08] LABS: Basophils # (Auto) 0.0 Thou/mm3 (0.0-0.2); Basophils % (Auto) 1 % (0-2.5); Eosinophils # (Auto) 0.0 Thou/mm3 (0.0-0.5); Eosinophils % (Auto) 0 % (0-10); Immature Granulocytes Auto 0.02 Thou/mm3 (0.00-0.00); Lymphocytes # (Auto) 0.8 Thou/mm3 (1.0-4.8); Lymphocytes % (Auto) 54 % (10-50); Mean Corpuscular HGB Conc 32.4 g/dl (31.0-37.0); Mean Corpuscular Hemoglobin 30.4 pg (25.0-35.0); Mean Corpuscular Volume 94 fL (80-100); Monocytes # (Auto) 0.2 Thou/mm3 (0.0-0.8); Monocytes % (Auto) 12 % (0-12); Neutrophils # (Auto) 0.5 Thou/mm3 (1.8-7.7); Neutrophils % (Auto) 32 % (37-80); Nucleated Red Blood Cell # 0.00 Thou/mm3 (0.00-0.00); Nucleated Red Blood Cell % 0 /100 WBC (0); RDW Standard Deviation 60.7 fL (35.1-43.9); Red Blood Count 1.94 Miln/mm3 (4.50-5.90)
[2024-12-08 09:15] LABS: White Blood Count 1.5 Thou/mm3 (3.8-10.6)
[2024-12-08 09:20] LABS: Hematocrit 18.2 % (41.0-53.0)
[2024-12-08 09:22] LABS: Hemoglobin 5.9 g/dL (13.5-16.0)
[2024-12-08 09:23] LABS: Platelet Count 13 Thou/mm3 (140-440)
[2024-12-08 10:51] LABS: Slide Review Platelets confirmed
== END 2024-12-09 23:59 | disposition home or self-care (01) ==
LOC: SCTC 08:13
PROVIDERS: Referring Provider Internal Medicine Hematology & Oncology; Visit Provider Internal Medicine Hematology & Oncology
DX: Z51.11 Encounter for antineoplastic chemotherapy (principal); D46.9 Myelodysplastic syndrome, unspecified; D69.6 Thrombocytopenia, unspecified; Z86.718 Personal history of other venous thrombosis and embolism
CPT/HCPCS: 36415; 36430; 85025; 86850; 86900; 86901; 86923; 86965; 96401; 96413; A4216; J7040; J7050; J9025; P9016; P9035

== ENCOUNTER 2025-01-03 08:13 | Outpatient (RCR) | payer MEDICARE, BC, SELFPAY ==
[2024-12-13 09:18] LABS: Basophils # (Auto) 0.0 Thou/mm3 (0.0-0.2); Basophils % (Auto) 0 % (0-2.5); Eosinophils # (Auto) 0.0 Thou/mm3 (0.0-0.5); Eosinophils % (Auto) 0 % (0-10); Hematocrit 22.4 % (41.0-53.0); Immature Granulocytes Auto 0.03 Thou/mm3 (0.00-0.00); Lymphocytes # (Auto) 0.3 Thou/mm3 (1.0-4.8); Lymphocytes % (Auto) 17 % (10-50); Mean Corpuscular HGB Conc 32.1 g/dl (31.0-37.0); Mean Corpuscular Hemoglobin 30.1 pg (25.0-35.0); Mean Corpuscular Volume 94 fL (80-100); Monocytes # (Auto) 0.2 Thou/mm3 (0.0-0.8); Monocytes % (Auto) 15 % (0-12); Neutrophils # (Auto) 1.0 Thou/mm3 (1.8-7.7); Neutrophils % (Auto) 66 % (37-80); Nucleated Red Blood Cell # 0.00 Thou/mm3 (0.00-0.00); Nucleated Red Blood Cell % 0 /100 WBC (0); RDW Standard Deviation 55.8 fL (35.1-43.9); Red Blood Count 2.39 Miln/mm3 (4.50-5.90)
[2024-12-13 09:27] LABS: White Blood Count 1.5 Thou/mm3 (3.8-10.6)
[2024-12-13 09:28] LABS: Hemoglobin 7.2 g/dL (13.5-16.0); Platelet Count 17 Thou/mm3 (140-440)
[2024-12-13 09:29] LABS: Slide Review Platelets confirmed
[2024-12-13 09:53] LABS: Alanine Aminotransferase 9 U/L (10-49); Albumin, Serum 3.7 gm/dL (3.4-4.8); Albumin/Globulin Ratio 2.1 (1.2-2.2); Alkaline Phosphatase 62 U/L (46-116); Anion Gap 7 (7-16); Aspartate Amino Transferase 11 U/L (0-34); BUN/Creatinine Ratio 16 Ratio (12-20); Bilirubin,Total 0.8 mg/dL (0.3-1.2); Blood Urea Nitrogen 14 mg/dL (9-23); Calcium 8.6 mg/dL (8.3-10.6); Calcium (Corrected) 8.8 mg/dL (8.5-10.1); Carbon Dioxide 26.3 mMol/L (20.0-31.0); Chloride 105 mMol/L (98-107); Creatinine (Component) 0.9 mg/dL (0.6-1.3); Globulin 1.8 gm/dL (2.3-3.5); Glucose 122 mg/dL (74-106); Osmolality,Calculated 277 (275-295); Potassium 4.2 mMol/L (3.4-5.1); Sodium 138 mMol/L (136-145); Total Protein 5.5 gm/dL (5.7-8.2); eGFR > 60 See Note
[2024-12-15 11:29] LABS: Basophils # (Auto) 0.0 Thou/mm3 (0.0-0.2); Basophils % (Auto) 0 % (0-2.5); Eosinophils # (Auto) 0.0 Thou/mm3 (0.0-0.5); Eosinophils % (Auto) 0 % (0-10); Hematocrit 22.9 % (41.0-53.0); Immature Granulocytes Auto 0.04 Thou/mm3 (0.00-0.00); Lymphocytes # (Auto) 0.3 Thou/mm3 (1.0-4.8); Lymphocytes % (Auto) 23 % (10-50); Mean Corpuscular HGB Conc 32.8 g/dl (31.0-37.0); Mean Corpuscular Hemoglobin 30.4 pg (25.0-35.0); Mean Corpuscular Volume 93 fL (80-100); Monocytes # (Auto) 0.1 Thou/mm3 (0.0-0.8); Monocytes % (Auto) 9 % (0-12); Neutrophils # (Auto) 0.8 Thou/mm3 (1.8-7.7); Neutrophils % (Auto) 65 % (37-80); Nucleated Red Blood Cell # 0.02 Thou/mm3 (0.00-0.00); Nucleated Red Blood Cell % 2 /100 WBC (0); RDW Standard Deviation 52.3 fL (35.1-43.9); Red Blood Count 2.47 Miln/mm3 (4.50-5.90)
[2024-12-15 11:44] LABS: Hemoglobin 7.5 g/dL (13.5-16.0); White Blood Count 1.2 Thou/mm3 (3.8-10.6)
[2024-12-15 11:45] LABS: Platelet Count 13 Thou/mm3 (140-440)
[2024-12-15 13:54] LABS: Slide Review Platelets confirmed
[2024-12-21 08:51] LABS: Basophils # (Auto) 0.0 Thou/mm3 (0.0-0.2); Basophils % (Auto) 0 % (0-2.5); Eosinophils # (Auto) 0.0 Thou/mm3 (0.0-0.5); Eosinophils % (Auto) 0 % (0-10); Hematocrit 27.5 % (41.0-53.0); Hemoglobin 9.2 g/dL (13.5-16.0); Immature Granulocytes Auto 0.03 Thou/mm3 (0.00-0.00); Lymphocytes # (Auto) 0.8 Thou/mm3 (1.0-4.8); Lymphocytes % (Auto) 37 % (10-50); Mean Corpuscular HGB Conc 33.5 g/dl (31.0-37.0); Mean Corpuscular Hemoglobin 30.5 pg (25.0-35.0); Mean Corpuscular Volume 91 fL (80-100); Monocytes # (Auto) 0.3 Thou/mm3 (0.0-0.8); Monocytes % (Auto) 14 % (0-12); Neutrophils # (Auto) 1.0 Thou/mm3 (1.8-7.7); Neutrophils % (Auto) 48 % (37-80); Nucleated Red Blood Cell # 0.00 Thou/mm3 (0.00-0.00); Nucleated Red Blood Cell % 0 /100 WBC (0); RDW Standard Deviation 51.8 fL (35.1-43.9); Red Blood Count 3.02 Miln/mm3 (4.50-5.90); White Blood Count 2.1 Thou/mm3 (3.8-10.6)
[2024-12-21 08:54] LABS: Platelet Count 13 Thou/mm3 (140-440)
[2024-12-21 09:07] LABS: Slide Review Platelets confirmed
[2024-12-27 09:18] LABS: Basophils # (Auto) 0.0 Thou/mm3 (0.0-0.2); Basophils % (Auto) 0 % (0-2.5); Eosinophils # (Auto) 0.0 Thou/mm3 (0.0-0.5); Eosinophils % (Auto) 0 % (0-10); Hematocrit 21.0 % (41.0-53.0); Immature Granulocytes Auto 0.10 Thou/mm3 (0.00-0.00); Lymphocytes # (Auto) 0.8 Thou/mm3 (1.0-4.8); Lymphocytes % (Auto) 32 % (10-50); Mean Corpuscular HGB Conc 33.3 g/dl (31.0-37.0); Mean Corpuscular Hemoglobin 30.2 pg (25.0-35.0); Mean Corpuscular Volume 91 fL (80-100); Monocytes # (Auto) 0.6 Thou/mm3 (0.0-0.8); Monocytes % (Auto) 24 % (0-12); Neutrophils # (Auto) 1.0 Thou/mm3 (1.8-7.7); Neutrophils % (Auto) 40 % (37-80); Nucleated Red Blood Cell # 0.00 Thou/mm3 (0.00-0.00); Nucleated Red Blood Cell % 0 /100 WBC (0); RDW Standard Deviation 49.5 fL (35.1-43.9); Red Blood Count 2.32 Miln/mm3 (4.50-5.90); White Blood Count 2.5 Thou/mm3 (3.8-10.6)
[2024-12-27 09:28] LABS: Hemoglobin 7.0 g/dL (13.5-16.0)
[2024-12-27 09:29] LABS: Platelet Count 8 Thou/mm3 (140-440); Slide Review Platelets confirmed
[2024-12-27 09:33] LABS: Alanine Aminotransferase 12 U/L (10-49); Albumin, Serum 3.7 gm/dL (3.4-4.8); Albumin/Globulin Ratio 2.1 (1.2-2.2); Alkaline Phosphatase 57 U/L (46-116); Anion Gap 9 (7-16); Aspartate Amino Transferase 13 U/L (0-34); BUN/Creatinine Ratio 23 Ratio (12-20); Bilirubin,Total 1.0 mg/dL (0.3-1.2); Blood Urea Nitrogen 18 mg/dL (9-23); Calcium 9.2 mg/dL (8.3-10.6); Calcium (Corrected) 9.4 mg/dL (8.5-10.1); Carbon Dioxide 25.4 mMol/L (20.0-31.0); Chloride 105 mMol/L (98-107); Creatinine (Component) 0.8 mg/dL (0.6-1.3); Globulin 1.8 gm/dL (2.3-3.5); Glucose 103 mg/dL (74-106); Osmolality,Calculated 279 (275-295); Potassium 4.4 mMol/L (3.4-5.1); Sodium 139 mMol/L (136-145); Total Protein 5.5 gm/dL (5.7-8.2); eGFR > 60 See Note
--- NOTE | 2024-12-29 14:00 | CTCFLWUP_ITS ---
Patient: MICHAEL RAMSAY : 1940 Page 4 of 6 FOLLOW UP NOTE DATE OF SERVICE: 12/29/2024 NAME: MICHAEL RAMSAY ACCOUNT: [id number] : 1940 AGE: 84 INTERVAL HISTORY: Michael Ramsay, an elderly male with myelodysplastic syndrome (MDS), presented with bruising from subcutaneous Vidaza injections and recurrent sinus symptoms. 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 Recent bone marrow biopsy showed progression with blast perc entage increasing from 3% to 10%, indicating evolution toward leukemia Patient have completed about 9 cycles of treatment and still is transfusion dependent. Discussed with him that treatment is not working. Chief Complaint Bruising and pain from subcutaneous injections, worsening sinus symptoms after running out of antibiotics History of Present Illness Michael Ramsay, a male patient with a history of myelodysplastic syndrome (MDS), presents for follow-up of his condition and management of treatment- related side effects. The patient reports significant bruising and pain at injection sites from his current subcutaneous Vidaza treatments. Mr. Ramsay expresses concern about the extensive bruising on his stomach from the subcutaneous injections, stating That's bruised. A lot of bleeding there. They go in too fast. He describes the injections as very painful, particularly when the medication is administered quickly or in large volumes under the skin. The patient also mentions feeling better recently but running out of antibiotics, suggesting a recent infection. Additionally, Mr. Ramsay reports experiencing allergy symptoms, including nighttime sneezing and nasal congestion. He states, I'm starting to sneeze at night again and believes he needs additional antibiotics to fully resolve these symptoms. He previously received a course of antibiotics, likely amoxicillin, taken twice daily, but did not complete the full course. The patient's MDS appears to be progressing, with recent bone marrow biopsy results showing an increase in blast percentage from 3% to 10%. He is currently receiving Vidaza injections five days a week and erythropoietin. Mr. Ramsay expresses openness to treatment modifications, including switching to intravenous administration and potentially starting venetoclax tablets. Medications and Supplements - Vidaza - Given as subcutaneous injections in the stomach - Administered 5 days in a week - Causing significant bruising and pain at injection sites - Erythropoietin - Given as injections - Antibiotics - Recently completed a course - Ran out and symptoms returned Review of Systems General: Positive for fatigue. Skin: Positive for bruising and bleeding. HEENT: Positive for runny nose and sneezing. Respiratory: Positive for shortness of breath. Objective: Physical Examination Abdomen: Multiple bruises noted on the stomach area. Skin: Visible bruising on the abdomen. Multiple injection site bruises observed. Laboratory, Imaging, and Diagnostic Test Results - Bone marrow biopsy (current): - Blast percentage: 10% - Findings: Compatible with high-grade myeloid neoplasm, abnormal myeloid maturation - Previous bone marrow biopsy ([facility]): - Blast percentage: 3% - Diagnosis: MDS with megakaryocyte dysplasia, early erythroid dysplasia - Cytogenetics: Deletion 7q and 20q - Current CBC: - Platelets: Low (specific value not provided) - Current blood counts: - Hemoglobin: Low (specific value not provided) . ONCOLOGY HISTORY:?CloneBlock Oncology Hx? Myelodysplastic syndrome with IPSS?R score of 3, risk category intermediate Currently on azacitidine (12/16/2022??). DIAGNOSIS: Myelodysplastic syndrome, unspecified [ICD10] D46.9?CloneBlock Dx? Myelodysplastic syndrome with IPSS?R score of 3, risk category intermediate DATE OF DIAGNOSIS: 11/13/2022 STAGE/TNM: Myelodysplastic syndrome with IPSS?R score of 3, risk category intermediate TREATMENT HISTORY: Care?Plan Start?Date Cycle Day Intent Azacitadine?sq?d1-5 12/16/2022 1 28 Palliative Azacytadine?sq?days?1-5 05/31/2024 1 28 Maintenance HISTORY OF PRESENT ILLNESS: Michael Ramsay is a 84-year-old ENG speaking male with remote history of cigarette smoking as well as alcohol abuse is referred to hematology clinic for anemia and thrombocytopenia. About 10 years ago patient apparently had an unprovoked left lower extremity DVT. About 8 years ago he had right knee surgery. At that time he developed left lower extremity DVT again. He also has remote history of left upper extremity DVT. Currently Mr. Ramsay is on indefinite anticoagulation with apixaban. 07/22/2022: WBC 3.2, ANC 2.1, hemoglobin 9.1, MCV 105, platelets 83,000. 11/13/2022: Mr. Ramsay had bone marrow biopsy and aspiration was done due to macrocytic anemia and thrombocytopenia. 12/13/2022: WBC 2.6, ANC 1.5, hemoglobin 7.8, MCV 104, platelets 57,000. 12/16/2022 - 04/18/2023: Mr. Ramsay had 5 cycles of Vidaza 05/13/2023: WBC 3.2, ANC 1.8, hemoglobin 9.6, MCV 105, platelets 103,000. 08/22/2023: Mr. Ramsay received 9 cycles of Vidaza 09/01/2023: WBC 3.3, ANC 2.0, hemoglobin 10.2, MCV 100, platelets 86,000. 10/13/2023: WBC 2.2, ANC 1.7, hemoglobin 10.9, MCV 101, platelets 143,000. OTHER MEDICAL HISTORY/CONDITIONS: Asthma Hx?DVT GERD Chronic?pain Cholecystectomy - 2007 Right TKA - 2017 [facility] carpal tunnel surgery - 30 yrs ago [facility] cataract surgery [facility] Lasik surgery Retinal repair right eye FAMILY HISTORY: Cancer?History:?Denies Patient?denies?family?cancer?history. 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 Tobacco Use:?Quit 1964 - smoked 1 PPD off/on x 10yrs ETOH Use:?Drinks beer almost daily x 15 yrs Drug?Note:?Denies Social?History?Note:?Lives?with? MEDICATIONS: 1. CeleBREX - 50 mg 1 Capsule Daily 2. cyanocobalamin (vitamin B-12) - 1,000 mcg 1 tab Daily 3. dexamethasone - 4 mg 1 tab Take 1 tab daily for 5 days per month with Vidaza 4. FLUoxetine - 20 mg 1 tab Daily 5. fluoxetine - 40 mg 1 Capsule Daily 6. Protonix - 40 mg Daily 7. Singulair - 10 mg 1 tab Daily?Palabra Meds? Medications Last Reconciled by Symone Christianson MA on 12/29/2024 ALLERGIES: REVIEW OF SYSTEMS: A complete 14-point review of systems was performed and is negative except as noted in interval history. PHYSICAL EXAMINATION:?CloneBlock PE? VITAL SIGNS: Temperature?99.2, B/P?112/62, Oxygen?Saturation?96% Weight?202?lbs (Change?since?12/27/24:?5.4?lbs) PAIN: 8 - Very severe pain Not done visit was telemedicine. LABORATORY DATA: I have personally reviewed and interpreted each of the patient?s relevant lab tests, abnormal findings are below: Date 12/15/24 12/21/24 12/27/24 ??WHITE?BLOOD?COUNT?(Thou/mm3) 1.2?L 2.1?L 2.5?L ??RED?BLOOD?COUNT?(Miln/mm3) 2.47?L 3.02?L 2.32?L ??HEMOGLOBIN?(gm/dl) 7.5?L 9.2?L 7.0?L ??HEMATOCRIT?(%) 22.9?L 27.5?L 21.0?LL ??PLATELET?COUNT?(Thou/mm3) 13?LL 13?LL 8?LL ??NEUTROPHILS?%,?AUTO?(%) 65 48 40 ??LYMPH?%,?AUTO?(%) 23 37 32 ??NEUTROPHILS,?AUTO?(Thou/mm3) 0.8?L 1.0?L 1.0?L ??GLUCOSE,RANDOM?(mg/dL) ? ? 103 ??BLOOD?UREA?NITROGEN?(mg/dL) ? ? 18 ??CREATININE?(mg/dL) ? ? 0.80 ??SODIUM?(mmol/L) ? ? 139 ??POTASSIUM?(mmol/L) ? ? 4.4 ??CHLORIDE?(mmol/L) ? ? 105 ??CrCl?(CandG)?(ml/min) ? ? 73.88 ??AST/SGOT?(Unit/L) ? ? 13 ??ALT/SGPT?(Unit/L) ? ? 12 ??ALKALINE?PHOSPHATASE?(Unit/L) ? ? 57 ??BILIRUBIN,?TOTAL?(mg/dL) ? ? 1.0 ??PROTEIN?TOTAL?(gm/dl) ? ? 5.5?L ??ALBUMIN,?SERUM?(gm/dl) ? ? 3.7 ??GLOBULIN?(gm/dl) ? ? 1.8?L ??ALBUMIN/GLOBULIN?RATIO ? ? 2.1 ??CALCIUM,?SERUM?(mg/dL) ? ? 9.2 ??CALCIUM?SERUM?(CORRECTED)?(mg/dL) ? ? 9.4 ASSESSMENT/PLAN:?Rach Kerr Assessment/Plan? 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 ?Rach Kerr Assessment/Plan? Myelodysplastic Syndrome (MDS)/aplastic anemia Patient has been on Vidaza and has completed about 9 cycles high-grade Myelodysplastic Syndrome (MDS) evolving into Leukemia Recent biopsy shows findings compatible with high-grade myeloid neoplasm. Bone marrow biopsy reveals relatively increased atypical blast count of 10%, up from 3% in previous [facility] bone marrow review. This indicates progression of MDS, potentially evolving into leukemia. Previous findings included megakaryocyte dysplasia, early erythroid dysplasia, and genetic abnormalities (deletion 7q and 20q). Current presentation includes low blood counts and significant bruising from subcutaneous medication injections, suggesting severe thrombocytopenia. Patient has been on Vidaza intravenously Was changed from subcu as was having extreme bruising Platelets below 10 and hemoglobin was less than 7 s/p transfusion Tried multiple transfusion of platelets to get port catheter completed Patient's platelets did not rise well enough to get the port catheter placement Will start on Promacta 50 mg daily for his aplastic anemia Will start on erythropoietin 10,000 units weekly if hemoglobin below 10 1. History of recurrent left lower extremity DVT. Patient's platelets are very low Advised to stop taking Eliquis until platelets are above 50 CBC every 2 weeks to monitor platelet level. Order # Description [id number] MD Follow Up [id number] CBC with Auto Diff [id number] CBC with Auto Diff + Comprehensive Metabolic Panel - 12 ORDERS: Order # Description [id number] Comprehensive Metabolic Panel - 12 + CBC with Auto Diff [id number] RETURN TO CLINIC: I reviewed the diagnosis, prognosis, and recommended treatment/procedure options with the patient (and/or their legal lifeline representatives), including the potential benefits, risks, side effects and alternative therapies. We also discussed the option of no treatment and the possibility of clinical trial participation, if applicable. All questions were addressed, and they demonstrated understanding. They provided informed consent to proceed with the proposed plan of care. BILLING AND COMPLIANCE: I reviewed external records from providers outside my specialty as summarized above. I spent a total of 50 minutes on this patient?s care on the day of their visit excluding time spent related to any billed procedures. This time includes time spent with the patient as well as time spent documenting in the medical record, reviewing patients records and tests, obtaining history, placing orders, communicating with other healthcare professionals, counseling the patient, family or caregiver, and/or care coordination for the diagnoses above. Electronically Signed by: Larry Kerr MD T: 1:58 PM CC: Deborah?Janusz? PCP: No Primary/family, Physician Referring: Larry Kerr This document was completed utilizing speech recognition software. Grammatical errors, random word insertions, pronoun errors, and incomplete sentences are an occasional consequence of this system due to software limitations, ambient noise, and hardware issues. Any formal questions or concerns about the content, text or information contained within the body of this dictation should be directly addressed to the provider for clarification.
[2025-01-03 08:49] LABS: Basophils # (Auto) 0.0 Thou/mm3 (0.0-0.2); Basophils % (Auto) 0 % (0-2.5); Eosinophils # (Auto) 0.0 Thou/mm3 (0.0-0.5); Eosinophils % (Auto) 0 % (0-10); Hematocrit 21.4 % (41.0-53.0); Immature Granulocytes Auto 0.03 Thou/mm3 (0.00-0.00); Lymphocytes # (Auto) 0.6 Thou/mm3 (1.0-4.8); Lymphocytes % (Auto) 36 % (10-50); Mean Corpuscular HGB Conc 33.6 g/dl (31.0-37.0); Mean Corpuscular Hemoglobin 30.4 pg (25.0-35.0); Mean Corpuscular Volume 90 fL (80-100); Monocytes # (Auto) 0.4 Thou/mm3 (0.0-0.8); Monocytes % (Auto) 26 % (0-12); Neutrophils # (Auto) 0.5 Thou/mm3 (1.8-7.7); Neutrophils % (Auto) 36 % (37-80); Nucleated Red Blood Cell # 0.00 Thou/mm3 (0.00-0.00); Nucleated Red Blood Cell % 0 /100 WBC (0); RDW Standard Deviation 47.8 fL (35.1-43.9); Red Blood Count 2.37 Miln/mm3 (4.50-5.90)
[2025-01-03 09:02] LABS: White Blood Count 1.5 Thou/mm3 (3.8-10.6)
[2025-01-03 09:03] LABS: Hemoglobin 7.2 g/dL (13.5-16.0); Platelet Count 7 Thou/mm3 (140-440); Slide Review Platelets confirmed
[2025-01-03 09:09] LABS: Alanine Aminotransferase 8 U/L (10-49); Albumin, Serum 3.6 gm/dL (3.4-4.8); Albumin/Globulin Ratio 1.6 (1.2-2.2); Alkaline Phosphatase 62 U/L (46-116); Anion Gap 9 (7-16); Aspartate Amino Transferase 16 U/L (0-34); BUN/Creatinine Ratio 18 Ratio (12-20); Bilirubin,Total 0.8 mg/dL (0.3-1.2); Blood Urea Nitrogen 14 mg/dL (9-23); Calcium 8.8 mg/dL (8.3-10.6); Calcium (Corrected) 9.1 mg/dL (8.5-10.1); Carbon Dioxide 25.3 mMol/L (20.0-31.0); Chloride 106 mMol/L (98-107); Creatinine (Component) 0.8 mg/dL (0.6-1.3); Globulin 2.2 gm/dL (2.3-3.5); Glucose 102 mg/dL (74-106); Osmolality,Calculated 279 (275-295); Potassium 4.2 mMol/L (3.4-5.1); Sodium 140 mMol/L (136-145); Total Protein 5.8 gm/dL (5.7-8.2); eGFR > 60 See Note
[2025-01-03 09:11] LABS: Ferritin 1095 ng/mL (10.5-307.3); Iron 129 mcg/dL (65-175); Percent Iron Saturation 57 % (20-55); Total Iron Binding Capacity 223 mcg/dL (250-425); Unsaturated Iron Binding 94 (225-295)
[2025-01-03 09:14] LABS: Folate 13.18 ng/mL (>5.38); Vitamin B12 1341 pg/mL (211-911)
[2025-01-06 06:34] LABS: Erythropoietin (EPO)* 192.9 mIU/mL (2.6-18.5)
== END 2025-01-09 23:59 | disposition home or self-care (01) ==
LOC: SCTC 08:13
PROVIDERS: Referring Provider Internal Medicine Hematology & Oncology; Visit Provider Internal Medicine Hematology & Oncology
DX: Z51.11 Encounter for antineoplastic chemotherapy (principal); D46.9 Myelodysplastic syndrome, unspecified; D61.9 Aplastic anemia, unspecified; Z86.718 Personal history of other venous thrombosis and embolism
CPT/HCPCS: 36415; 36430; 80053; 82607; 82668; 82728; 82746; 83540; 83550; 85025; 86850; 86900; 86901; 86923; 86965; 96413; 99212; A4216; J3490; J7040; J9025; P9016; P9035; A9270; G0463

== ENCOUNTER 2025-02-04 10:18 | Emergency (ER) | payer MEDICARE, BC, SELFPAY ==
[2025-02-04 10:29] VITALS: BP 107/64; PULSE 100; RESP 18; TEMP 37.1; O2SAT 97
[2025-02-04 10:39] VITALS: PULSE 113; O2SAT 98
--- NOTE | 2025-02-04 11:32 | EDNOTE_ITS ---
ED General RME/HPI General Chief complaint: General Adult/Misc Complain Stated complaint: ARTHRITIS Time Seen by Provider: 02/04/25 11:14 Arrival date/time: 02/04/25 10:18 RME / HPI RME / HPI narrative: 84-year-old male patient with significant history of leukemia, currently not on chemotherapy due to refusal to do further treatment for his leukemia, came in for evaluation regarding worsening arthritis. Patient was diagnosed with gout arthritis, for the last several weeks patient is been complaining of worsening joint pains. Patient is supposed to see a pattern marking supervisor today however due to pain instead come to this emergency room. Patient denies any fever denies any other complaint. Currently taking colchicine. Denies any other complaints. Patient is having difficulty ambulating due to pain all over his joints. Related Data Home Medications ?Medication ?Instructions ?Recorded ?Confirmed apixaban 2.5 mg tablet (Eliquis) 2.5 mg PO BID 3 11/13/22 Held on 11/13/22. Instructions: Resume on 11/16/22. fluoxetine 20 mg capsule 20 mg PO QDAY 07/23/2211/13 ipratropium 0.5 mg-albuterol 3 mg 3 ml inhalation Q6H PRN Shortness 07/23/22 11/13/22 (2.5 mg base)/3 mL nebulization Of Breath Or Wheezing soln pantoprazole 40 mg tablet,delayed 40 mg PO DAILY 07/2311/13/22 release celecoxib 50 mg capsule 100 mg PO 1XD 11/13/2211/13 Previous Rx's ?Medication ?Instructions ?Recorded pantoprazole 40 mg tablet,delayed 40 mg PO QDAY #30 ta bs 02/04/25 release (Protonix) prednisone 10 mg tablet See Taper PO QDAY #60 tabs 0 02/04/25 Allergies Allergy/AdvReac Type Severity Reaction Status Date / Time NSAIDS (Non-Steroidal Allergy Verified 02/04/25 15:12 Anti-Inflamma Review of Systems Review of Systems Narrative Review of Systems: Review of system reviewed and within normal limits except mentioned in HPI ED Exam Narrative Physical exam: VITAL SIGNS: Reviewed. GENERAL APPEARANCE: Alert and interactive, follows commands, no acute distress, HEAD AND FACE: Non-traumatic. ENT: PERRL, pink conjunctivitis, eyelid no trauma, Mucous membrane moist. NECK: Supple, nontender, no nuchal rigidity. CHEST: No tenderness, no crepitus, no paradoxical movement, no retractions. LUNGS: Clear, well ventilated, symmetric, no rales, no wheezing, no ronchi, no stridor, good breath sounds bilaterally. HEART: Regular rate, regular rhythm, no murmur, no gallops. ABDOMEN: Soft, positive bowel sounds, nondistended, no guarding, nontender, no rebound, no masses, RECTAL: Deferred. GENITAL: Deferred. NEUROLOGICAL: Gross motor function intact sensory function intact, Appropriate for age. MUSCULOSKELETAL: low back nontender, full range of motion. EXTREMITIES: Multiple joint tenderness with swelling to the multiple interphalangeal joints bilateral hands, full range of motion. SKIN: Color pink, dry, no rash, no lacerations, no abrasions, no contusions. LYMPHATICS: Deferred. Course Quality Measures none Orders Category Date Time Status Insert IV NOW Care 02/04/25 11:33 Active Diet Regular Diet 02/04/25 Lunch Active CBC [CBC] Stat Lab 02/04/25 11:40 Completed CMP [Comprehensive Metabolic Panel] Stat Lab 02/04/25 11:40 Results Magnesium Stat Lab 02/04/25 11:40 Results Path Review Blood Smear Stat Lab 02/04/25 11:40 Completed UA, C/S IF [Urinalysis, C/S if Indicated] Stat Lab 02/04/25 11:28 Ordered Uric Acid Stat Lab 02/04/25 11:40 Results Colchicine Med 02/04/25 11:28 Discontinued 1.2 mg PO X1 ONE Dexamethasone Inj [Decadron Inj] Med 02/04/25 11:28 Discontinued 10 mg IVP X1 ONE Famotidine Inj [Pepcid Inj] Med 02/04/25 11:28 Discontinued 20 mg IVP X1 ONE HYDROmorphone INJ [Dilaudid Inj] Med 02/04/25 14:55 Discontinued 1 mg IVP X1 ONE Ketorolac Inj [Toradol Inj] Med 02/04/25 13:50 Discontinued 30 mg IVP X1 ONE Morphine* Inj Med 02/04/25 11:29 Discontinued 4 mg IVP X1 ONE Ringers Lactated 1000 ml [Lactated Ringers] 1,000 ml Med 02/04/25 11:29 Discontinued IV 999 mls/hr Vital Signs Vital signs: Vital Signs Temperature 98.8 F 02/04/25 10:29 Pulse Rate 100 02/04/25 10:29 Respiratory Rate 18 02/04/25 10:29 Blood Pressure 107/64 02/04/25 10:29 Pulse Oximetry (%) 97 02/04/25 10:29 Oxygen Delivery Method Room Air 02/04/25 10:29 Discharge Plan Plan Patient Disposition: HOME (Self Care) Discharge Disposition comment: Stable Prescriptions/Referrals Prescriptions/Med Rec: New prednisone 10 mg tablet See Taper PO QDAY Qty: 60 0RF Taper: Prednisone Taper 40 mg DAILY for 3 Days and 0 Hour 20 mg DAILY for 3 Days and 0 Hour 10 mg DAILY for 30 Days and 0 Hour Rx Instructions: Take prednisone with food pantoprazole [Protonix] 40 mg tablet,delayed release (DR/EC) 40 mg PO QDAY Qty: 30 0RF No Action pantoprazole 40 mg tablet,delayed release (DR/EC) 40 mg PO DAILY Patient Comments: TAKE ONE TABLET BY MOUTH EVERY DAY HEARTBURN GASTRIC ACIDITY EVERY ipratropium-albuterol 0.5 mg-3 mg(2.5 mg base)/3 mL Solution For Nebulization 3 ml INHALATION Q6H PRN (Reason: Shortness Of Breath Or Wheezing) fluoxetine 20 mg Capsule 20 mg PO QDAY Eliquis 2.5 mg Tablet 2.5 mg PO BID celecoxib 50 mg Capsule 100 mg PO 1XD Referrals: Janette Olson, CLINICAL PSYCHIATRIST [Primary Care Provider] - In 1 week Problem List Clinical Impression: Flare of rheumatoid arthritis, History of leukemia Patient/Caregiver Discharge Instructions Discharge Activity: activity as tolerated Education Materials: What Is Rheumatoid Arthritis? Additional Instructions: Thank you for the opportunity for serving you today. You are stable for discharged . You are advised to: Follow-up with your pattern marking supervisor next week please call ahead for appointment Please follow-up with cancer center also this Friday Return to ED for worsening of symptoms Increase oral fluids Take medication as prescribed Take your medication with food Print Language: Chadian Stand Alone Forms: Valeria Award Info., Patient Portal Info Letter PA/COMPUTER SCIENCE INTERN Supervising Physician FAUZIA/COMPUTER SCIENCE INTERN Supervising Physician: MD Marline MDM Narrative MDM hospital course (for use when minimal MDM required): 84-year-old male patient with significant history of leukemia, currently not on chemotherapy due to refusal to do further treatment for his leukemia, came in fo r evaluation regarding worsening arthritis. Patient was diagnosed with gout arthritis, for the last several weeks patient is been complaining of worsening joint pains. Patient is supposed to see a pattern marking supervisor today however due to pain instead come to this emergency room. Patient denies any fever denies any other complaint. Currently taking colchicine. Denies any other complaints. Patient is having difficulty ambulating due to pain all over his joints. Patient CBC showed no leukocytosis, hemoglobin 9.2 hematocrit 27.5, platelet was noted to be 11 which is chronically this number baseline, no active bleeding noted no bruising noted CMP unremarkable. Patient received colchicine 1.2, dexamethasone 10 mg IV, Pepcid IV, Dilaudid, and IV fluids. Significant improvement of pain noted. I spoke with Dr. Craven, patient's oncologist, who told me that patient is okay to go home and does not need platelets or blood transfusion at this time can follow-up in the cancer center Friday and they will decide. She advised me to send this patient home on prednisone 40 mg for 3 days decreased 20 for 3 days and then maintenance at 10 mg daily. Will also be sending this patient on Protonix. Patient is stable for discharge home. Medication Administration(s) Medication Administration History Discontinued Medications Colchicine (Colchicine 0.6 Mg Tablet) 1.2 mg PO X1 ONE Stop: 02/04/25 11:29 Last Admin: 02/04/25 12:00 Dose: 1.2 mg Documented By: NADIA Dexamethasone Sodium Phosphate (Dexamethasone Sod Phos Inj 10 Mg/Ml Vial) 10 mg IVP X1 ONE Stop: 02/04/25 11:29 Last Admin: 02/04/25 11:56 Dose: 10 mg Documented By: NADIA Famotidine (Famotidine Inj 10 Mg/Ml Vial 2 Ml) 20 mg IVP X1 ONE Stop: 02/04/25 11:29 Last Admin: 02/04/25 11:54 Dose: 20 mg Documented By: NADIA Hydromorphone HCl (Hydromorphone Inj 2 Mg/Ml Vial) 1 mg IVP X1 ONE Stop: 02/04/25 14:56 Last Admin: 02/04/25 15:01 Dose: 1 mg Documented By: NADIA Lactated Ringer's (Lactated Ringers) 1,000 mls @ 999 mls/hr IV .Q1H1M ONE Stop: 02/04/25 12:29 Last Infusion: 02/04/25 13:16 Dose: Infused Documented By: Admin: 02/04/25 11:53 Dose: 999 mls/hr Documented By: NADIA Ketorolac Tromethamine (Ketorolac Inj 30 Mg/Ml Vial) 30 mg IVP X1 ONE Stop: 02/04/25 13:51 Last Admin: 02/04/25 14:31 Dose: Not Given Documented By: NADIA Non-Admin Reason: Cancelled by Provider Morphine Sulfate (Morphine Sulf Inj 4 Mg/Ml Vial) 4 mg IVP X1 ONE Stop: 02/04/25 11:30 Last Admin: 02/04/25 11:58 Dose: 4 mg Documented By: NADIA Diagnosis Differential Diagnosis ED Complaint MDM: flar rheumatoid arthritis, multiple joint pain, anemia, history of leukemia Diagnoses ruled out and/or further discussions: Flare rheumatoid arthritis, anemia history of leukemia thrombocytopenia
[2025-02-04] MEDS: RINGERS LACTATED 1000 ML 1,000 ML 999 ML IV (11:53)
[2025-02-04] MEDS: FAMOTIDINE INJ 10 MG/ML VIAL 2 ML 20 MG IVP (11:54)
[2025-02-04] MEDS: DEXAMETHASONE SOD PHOS INJ 10 MG/ML VIAL IVP (11:56)
[2025-02-04] MEDS: MORPHINE SULF INJ 4 MG/ML VIAL IVP (11:58)
[2025-02-04] MEDS: COLCHICINE 0.6 MG TABLET 1.2 MG PO (12:00)
[2025-02-04 12:02] VITALS: BMI 26.3
[2025-02-04 12:22] LABS: Basophils # (Auto) 0.0 Thou/mm3 (0.0-0.2); Basophils % (Auto) 0 % (0-2.5); Eosinophils # (Auto) 0.0 Thou/mm3 (0.0-0.5); Eosinophils % (Auto) 0 % (0-10); Hematocrit 27.5 % (41.0-53.0); Hemoglobin 9.2 g/dL (13.5-16.0); Immature Granulocytes Auto 0.84 Thou/mm3 (0.00-0.00); Lymphocytes # (Auto) 0.7 Thou/mm3 (1.0-4.8); Lymphocytes % (Auto) 9 % (10-50); Mean Corpuscular HGB Conc 33.5 g/dl (31.0-37.0); Mean Corpuscular Hemoglobin 29.7 pg (25.0-35.0); Mean Corpuscular Volume 89 fL (80-100); Monocytes # (Auto) 3.4 Thou/mm3 (0.0-0.8); Monocytes % (Auto) 43 % (0-12); Neutrophils # (Auto) 3.1 Thou/mm3 (1.8-7.7); Neutrophils % (Auto) 38 % (37-80); Nucleated Red Blood Cell # 0.00 Thou/mm3 (0.00-0.00); Nucleated Red Blood Cell % 0 /100 WBC (0); RDW Standard Deviation 44.2 fL (35.1-43.9); Red Blood Count 3.10 Miln/mm3 (4.50-5.90); White Blood Count 8.1 Thou/mm3 (3.8-10.6)
[2025-02-04 12:23] LABS: Platelet Count 11 Thou/mm3 (140-440)
[2025-02-04 12:49] LABS: Alanine Aminotransferase 35 U/L (10-49); Albumin, Serum 3.8 gm/dL (3.4-4.8); Albumin/Globulin Ratio 1.6 (1.2-2.2); Alkaline Phosphatase 85 U/L (46-116); Anion Gap 10 (7-16); Aspartate Amino Transferase 19 U/L (0-34); BUN/Creatinine Ratio 20 Ratio (12-20); Bilirubin,Total 1.3 mg/dL (0.3-1.2); Blood Urea Nitrogen 20 mg/dL (9-23); Calcium 9.2 mg/dL (8.3-10.6); Calcium (Corrected) 9.4 mg/dL (8.5-10.1); Carbon Dioxide 26.9 mMol/L (20.0-31.0); Chloride 98 mMol/L (98-107); Creatinine (Component) 1.0 mg/dL (0.6-1.3); Estimated Creatinine Clearance 58.6 mL/min (>60); Globulin 2.4 gm/dL (2.3-3.5); Glucose 94 mg/dL (74-106); Magnesium 1.7 mg/dL (1.6-2.6); Osmolality,Calculated 272 (275-295); Potassium 4.0 mMol/L (3.4-5.1); Sodium 135 mMol/L (136-145); Total Protein 6.2 gm/dL (5.7-8.2); eGFR > 60 See Note
[2025-02-04 13:40] LABS: Slide Review Platelets confirmed
[2025-02-04 13:42] LABS: Path Review Blood Smear Sent to Pathologist
[2025-02-04 14:30] VITALS: BP 102/49; PULSE 99; RESP 17; TEMP 36.9; O2SAT 97
[2025-02-04] MEDS: HYDROmorphone INJ 2 MG/ML VIAL 1 MG IVP (15:01)
[2025-02-04 15:21] LABS: Uric Acid 5.2 mg/dL (3.7-9.2)
[2025-02-04 15:35] VITALS: BP 112/65; PULSE 65; RESP 16; TEMP 36.9; O2SAT 99
== END 2025-02-04 15:47 | disposition home or self-care (01) ==
PROVIDERS: Nurse Practitioner Family; Emergency Provider Emergency Medicine; PCP Nurse Practitioner Family
DX: M06.9 Rheumatoid arthritis, unspecified (principal); C95.90 Leukemia, unspecified not having achieved remission
CPT/HCPCS: 36415; 80053; 81001; 83735; 84550; 84560; 85025; 99284; J1100; J1171; J2270; J3490; J7120; A9270

== ENCOUNTER → 2025-02-09 | Outpatient (CLI) | payer MEDICARE, BC, SELFPAY ==
--- NOTE | 2025-02-09 | XR_ITS ---
Examination: Ankle Bilateral, 6 views Lateral each ankle total 6 views Date and time: February 09, 2025, 1128 hours INDICATIONS: Ankle pain one month. FINDINGS: Severe osteopenia Bilateral moderate narrowing tibiotalar joints Bilateral large plantar bony calcaneal spurs No fractures No avascular necrosis Impression: Bilateral moderate narrowing tibiotalar joints Bilateral large plantar bony calcaneal spurs
--- NOTE | 2025-02-09 | XR_ITS ---
Examination: Knee, left , 3 views Technique: Knee AP, lateral, oblique 3 views Date and time of exam: February 09, 2025 1128 hours INDICATIONS: Left knee pain beginning one month ago. FINDINGS: Significant osteopenia. Advanced tricompartment osteoarthritis No fracture or dislocation IMPRESSION: Advanced left knee tricompartment osteoarthritis
--- NOTE | 2025-02-09 | XR_ITS ---
Examination: Bilateral wrists 6 views TECHNIQUE: AP oblique lateral each wrist total 6 views Date and time: February 09, 2025 1136 hours INDICATIONS: Bilateral wrist pain beginning one month ago FINDINGS: Severe osteopenia Diffuse advanced narrowing radiocarpal intercarpal carpometacarpal joints No erosive arthritis IMPRESSION: Bilateral advanced wrist osteoarthritis
--- NOTE | 2025-02-09 10:00 | XR_ITS ---
Examination: CT cervical spine without contrast 2-D sagittal reconstructions 2-D coronal reconstructions 3-D reconstructions. Exam date and time:February 09, 2025 1023 hours INDICATIONS: Neck pain 15 years CTDI:vol (mGy) 14.0 DLP: (mGycm) 350 Technique: Multiple 2 mm axial sections of the cervical spine have been obtained. The coronal and sagittal reconstructions have been obtained. 3-D reconstructions have been obtained. Low dose protocols were performed. One or more of the following dose reduction techniques were used; automated exposure control, adjustment of the mA and/or KV according to patient size, use of iterative reconstruction technique. Findings: Axial sections demonstrate intact base of the skull. C1 exhibit satisfactory relationship to the odontoid. No acute cervical vertebral body fracture seen. Alignment posterior spinous processes satisfactory. Advanced degenerative disc disease C3-C4, C4-C5, C5-C6, C6-C7 C3-C4 advanced bilateral neural foraminal stenosis C4-C5 advanced bilateral neural foraminal stenosis C5-C6 advanced bilateral neural foraminal stenosis C6-C7 moderate bilateral neural foraminal stenosis Impression: No acute cervical fracture. Advanced degenerative disc disease as above with advanced bilateral neural foraminal stenosis
== END | disposition home or self-care (01) ==
PROVIDERS: PCP Nurse Practitioner Family; Referring Provider Student in an Organized Health Care Education/Training Program; Visit Provider Student in an Organized Health Care Education/Training Program
DX: M50.31 Other cervical disc degeneration, high cervical region (principal); M48.02 Spinal stenosis, cervical region; M17.12 Unilateral primary osteoarthritis, left knee; M25.872 Other specified joint disorders, left ankle and foot; M25.871 Other specified joint disorders, right ankle and foot; M77.32 Calcaneal spur, left foot; M77.31 Calcaneal spur, right foot; M19.032 Primary osteoarthritis, left wrist; M19.031 Primary osteoarthritis, right wrist
CPT/HCPCS: 72125; 73110; 73562; 73610

== ENCOUNTER → 2025-02-22 | Outpatient (CLI) | payer MEDICARE, BC, SELFPAY ==
[2025-02-22 11:32] LABS: Basophils # (Auto) 0.0 Thou/mm3 (0.0-0.2); Basophils % (Auto) 1 % (0-2.5); Eosinophils # (Auto) 0.0 Thou/mm3 (0.0-0.5); Eosinophils % (Auto) 0 % (0-10); Hematocrit 23.4 % (41.0-53.0); Immature Granulocytes Auto 0.10 Thou/mm3 (0.00-0.00); Lymphocytes # (Auto) 1.4 Thou/mm3 (1.0-4.8); Lymphocytes % (Auto) 45 % (10-50); Mean Corpuscular HGB Conc 33.3 g/dl (31.0-37.0); Mean Corpuscular Hemoglobin 29.2 pg (25.0-35.0); Mean Corpuscular Volume 88 fL (80-100); Monocytes # (Auto) 0.6 Thou/mm3 (0.0-0.8); Monocytes % (Auto) 19 % (0-12); Neutrophils # (Auto) 1.0 Thou/mm3 (1.8-7.7); Neutrophils % (Auto) 32 % (37-80); Nucleated Red Blood Cell # 0.00 Thou/mm3 (0.00-0.00); Nucleated Red Blood Cell % 0 /100 WBC (0); RDW Standard Deviation 43.9 fL (35.1-43.9); Red Blood Count 2.67 Miln/mm3 (4.50-5.90); White Blood Count 3.2 Thou/mm3 (3.8-10.6)
[2025-02-22 11:40] LABS: Hemoglobin 7.8 g/dL (13.5-16.0)
[2025-02-22 11:41] LABS: Platelet Count 10 Thou/mm3 (140-440)
[2025-02-22 11:44] LABS: Slide Review Platelets confirmed
[2025-02-22 11:46] LABS: Parathyroid Hormone Intact 96.2 pg/ml (18.5-88.0)
[2025-02-22 11:48] LABS: Alanine Aminotransferase 32 U/L (10-49); Albumin, Serum 3.5 gm/dL (3.4-4.8); Albumin/Globulin Ratio 1.8 (1.2-2.2); Alkaline Phosphatase 68 U/L (46-116); Anion Gap 9 (7-16); Aspartate Amino Transferase 23 U/L (0-34); BUN/Creatinine Ratio 20 Ratio (12-20); Bilirubin,Total 0.6 mg/dL (0.3-1.2); Blood Urea Nitrogen 12 mg/dL (9-23); C-Reactive Protein 1.9 mg/dL (0.0-0.9); Calcium 8.2 mg/dL (8.3-10.6); Calcium (Corrected) 8.6 mg/dL (8.5-10.1); Carbon Dioxide 26.8 mMol/L (20.0-31.0); Chloride 103 mMol/L (98-107); Creatinine (Component) 0.6 mg/dL (0.6-1.3); Globulin 2.0 gm/dL (2.3-3.5); Glucose 77 mg/dL (74-106); Magnesium 1.4 mg/dL (1.6-2.6); Osmolality,Calculated 276 (275-295); Phosphorous 3.3 mg/dL (2.4-5.1); Potassium 4.1 mMol/L (3.4-5.1); Sodium 139 mMol/L (136-145); Total Protein 5.5 gm/dL (5.7-8.2); Uric Acid 3.4 mg/dL (3.7-9.2); eGFR > 60 See Note
[2025-02-22 11:49] LABS: Sed Rate (ESR) 14 mm/hr (0-20)
[2025-02-22 11:50] LABS: Ferritin 1536 ng/mL (10.5-307.3)
== END | disposition home or self-care (01) ==
LOC: COPL 10:52
PROVIDERS: PCP Family Medicine; Referring Provider Student in an Organized Health Care Education/Training Program; Visit Provider Student in an Organized Health Care Education/Training Program
DX: E87.8 Other disorders of electrolyte and fluid balance, not elsewhere classified (principal); G89.29 Other chronic pain; M11.20 Other chondrocalcinosis, unspecified site; M17.12 Unilateral primary osteoarthritis, left knee; M25.531 Pain in right wrist; M25.571 Pain in right ankle and joints of right foot; M54.2 Cervicalgia; R79.89 Other specified abnormal findings of blood chemistry
CPT/HCPCS: 36415; 80053; 82728; 83735; 83970; 84100; 84550; 85025; 85652; 86140

== ENCOUNTER → 2025-03-11 | Outpatient (CLI) | payer MEDICARE, BC, SELFPAY ==
[2025-03-11 12:36] LABS: Cardiac Risk Estimate 2.3 RATIO (4.0-6.7); Cholesterol 105 mg/dL (132-200); HDL Cholesterol 45 mg/dL (40-60); LDL Cholesterol,Calculated 51 mg/dL (0-130); Triglycerides 45 mg/dL (30-150)
[2025-03-11 12:41] LABS: Prostate Specific Antigen 0.57 ng/mL (0-4.00)
== END | disposition home or self-care (01) ==
LOC: COPL 11:05
PROVIDERS: PCP Nurse Practitioner Family; Referring Provider Nurse Practitioner Family; Visit Provider Nurse Practitioner Family
DX: Z00.00 Encounter for general adult medical examination without abnormal findings (principal); Z86.718 Personal history of other venous thrombosis and embolism
CPT/HCPCS: 36415; 80061; 84153

== ENCOUNTER 2025-04-04 07:48 | Outpatient (RCR) | payer MEDICARE, BC, SELFPAY ==
[2025-03-14 08:46] LABS: Basophils # (Auto) 0.0 Thou/mm3 (0.0-0.2); Basophils % (Auto) 1 % (0-2.5); Eosinophils # (Auto) 0.0 Thou/mm3 (0.0-0.5); Eosinophils % (Auto) 0 % (0-10); Hematocrit 21.8 % (41.0-53.0); Immature Granulocytes Auto 0.12 Thou/mm3 (0.00-0.00); Lymphocytes # (Auto) 0.3 Thou/mm3 (1.0-4.8); Lymphocytes % (Auto) 20 % (10-50); Mean Corpuscular HGB Conc 33.0 g/dl (31.0-37.0); Mean Corpuscular Hemoglobin 28.3 pg (25.0-35.0); Mean Corpuscular Volume 86 fL (80-100); Monocytes # (Auto) 0.5 Thou/mm3 (0.0-0.8); Monocytes % (Auto) 29 % (0-12); Neutrophils # (Auto) 0.7 Thou/mm3 (1.8-7.7); Neutrophils % (Auto) 44 % (37-80); Nucleated Red Blood Cell # 0.00 Thou/mm3 (0.00-0.00); Nucleated Red Blood Cell % 0 /100 WBC (0); RDW Standard Deviation 44.7 fL (35.1-43.9); Red Blood Count 2.54 Miln/mm3 (4.50-5.90); White Blood Count 1.7 Thou/mm3 (3.8-10.6)
[2025-03-14 08:55] LABS: Hemoglobin 7.2 g/dL (13.5-16.0)
[2025-03-14 08:59] LABS: Platelet Count 11 Thou/mm3 (140-440); Slide Review Platelets confirmed
[2025-03-21 08:45] LABS: Basophils # (Auto) 0.0 Thou/mm3 (0.0-0.2); Basophils % (Auto) 1 % (0-2.5); Eosinophils # (Auto) 0.0 Thou/mm3 (0.0-0.5); Eosinophils % (Auto) 0 % (0-10); Hematocrit 22.7 % (41.0-53.0); Immature Granulocytes Auto 0.21 Thou/mm3 (0.00-0.00); Lymphocytes # (Auto) 0.4 Thou/mm3 (1.0-4.8); Lymphocytes % (Auto) 9 % (10-50); Mean Corpuscular HGB Conc 33.5 g/dl (31.0-37.0); Mean Corpuscular Hemoglobin 28.1 pg (25.0-35.0); Mean Corpuscular Volume 84 fL (80-100); Monocytes # (Auto) 1.1 Thou/mm3 (0.0-0.8); Monocytes % (Auto) 29 % (0-12); Neutrophils # (Auto) 2.2 Thou/mm3 (1.8-7.7); Neutrophils % (Auto) 55 % (37-80); Nucleated Red Blood Cell # 0.00 Thou/mm3 (0.00-0.00); Nucleated Red Blood Cell % 0 /100 WBC (0); RDW Standard Deviation 42.0 fL (35.1-43.9); Red Blood Count 2.70 Miln/mm3 (4.50-5.90); White Blood Count 4.0 Thou/mm3 (3.8-10.6)
[2025-03-21 09:02] LABS: Hemoglobin 7.6 g/dL (13.5-16.0); Platelet Count 9 Thou/mm3 (140-440)
[2025-03-21 09:25] LABS: Slide Review Platelets confirmed
[2025-03-28 09:06] LABS: Basophils # (Auto) 0.0 Thou/mm3 (0.0-0.2); Basophils % (Auto) 1 % (0-2.5); Eosinophils # (Auto) 0.0 Thou/mm3 (0.0-0.5); Eosinophils % (Auto) 0 % (0-10); Hematocrit 22.2 % (41.0-53.0); Immature Granulocytes Auto 0.07 Thou/mm3 (0.00-0.00); Lymphocytes # (Auto) 0.9 Thou/mm3 (1.0-4.8); Lymphocytes % (Auto) 33 % (10-50); Mean Corpuscular HGB Conc 33.3 g/dl (31.0-37.0); Mean Corpuscular Hemoglobin 27.3 pg (25.0-35.0); Mean Corpuscular Volume 82 fL (80-100); Monocytes # (Auto) 0.6 Thou/mm3 (0.0-0.8); Monocytes % (Auto) 23 % (0-12); Neutrophils # (Auto) 1.1 Thou/mm3 (1.8-7.7); Neutrophils % (Auto) 40 % (37-80); Nucleated Red Blood Cell # 0.00 Thou/mm3 (0.00-0.00); Nucleated Red Blood Cell % 0 /100 WBC (0); RDW Standard Deviation 40.3 fL (35.1-43.9); Red Blood Count 2.71 Miln/mm3 (4.50-5.90); White Blood Count 2.7 Thou/mm3 (3.8-10.6)
[2025-03-28 09:18] LABS: Hemoglobin 7.4 g/dL (13.5-16.0)
[2025-03-28 09:19] LABS: Platelet Count 9 Thou/mm3 (140-440); Slide Review Platelets confirmed
[2025-03-28 09:24] LABS: Ferritin 1102 ng/mL (10.5-307.3)
[2025-04-04 08:56] LABS: Basophils # (Auto) 0.0 Thou/mm3 (0.0-0.2); Basophils % (Auto) 1 % (0-2.5); Eosinophils # (Auto) 0.0 Thou/mm3 (0.0-0.5); Eosinophils % (Auto) 0 % (0-10); Hematocrit 21.2 % (41.0-53.0); Immature Granulocytes Auto 0.09 Thou/mm3 (0.00-0.00); Lymphocytes # (Auto) 0.9 Thou/mm3 (1.0-4.8); Lymphocytes % (Auto) 46 % (10-50); Mean Corpuscular HGB Conc 34.0 g/dl (31.0-37.0); Mean Corpuscular Hemoglobin 27.9 pg (25.0-35.0); Mean Corpuscular Volume 82 fL (80-100); Monocytes # (Auto) 0.4 Thou/mm3 (0.0-0.8); Monocytes % (Auto) 23 % (0-12); Neutrophils # (Auto) 0.5 Thou/mm3 (1.8-7.7); Neutrophils % (Auto) 26 % (37-80); Nucleated Red Blood Cell # 0.00 Thou/mm3 (0.00-0.00); Nucleated Red Blood Cell % 0 /100 WBC (0); RDW Standard Deviation 40.9 fL (35.1-43.9); Red Blood Count 2.58 Miln/mm3 (4.50-5.90); White Blood Count 1.8 Thou/mm3 (3.8-10.6)
[2025-04-04 09:18] LABS: Hemoglobin 7.2 g/dL (13.5-16.0); Platelet Count 8 Thou/mm3 (140-440)
[2025-04-04 09:19] LABS: Slide Review Platelets confirmed
[2025-04-04 11:45] LABS: Atypical Lymphs 1+; Lymphocytes (Manual) 70 % (20-44); Metamyelocytes (Manual) 1 % (0-0); Monocytes (Manual) 7 % (2-9); Neutrophils (Manual) 22 % (50-70)
== END 2025-04-10 23:59 | disposition home or self-care (01) ==
LOC: SCTC 07:48
PROVIDERS: PCP Family Medicine; Referring Provider Family Medicine; Visit Provider Internal Medicine Hematology & Oncology
DX: D46.9 Myelodysplastic syndrome, unspecified (principal); D61.9 Aplastic anemia, unspecified; Z86.718 Personal history of other venous thrombosis and embolism
CPT/HCPCS: 36415; 36430; 82728; 85025; 85049; 86850; 86900; 86901; 86923; 86965; A4216; J7040; P9016; P9035

== ENCOUNTER 2025-05-11 07:29 | Outpatient (RCR) | payer MEDICARE, BC, SELFPAY ==
[2025-04-12 08:36] LABS: Basophils # (Auto) 0.0 Thou/mm3 (0.0-0.2); Basophils % (Auto) 0 % (0-2.5); Eosinophils # (Auto) 0.0 Thou/mm3 (0.0-0.5); Eosinophils % (Auto) 0 % (0-10); Immature Granulocytes Auto 0.05 Thou/mm3 (0.00-0.00); Lymphocytes # (Auto) 0.6 Thou/mm3 (1.0-4.8); Lymphocytes % (Auto) 26 % (10-50); Mean Corpuscular HGB Conc 33.8 g/dl (31.0-37.0); Mean Corpuscular Hemoglobin 28.0 pg (25.0-35.0); Mean Corpuscular Volume 83 fL (80-100); Monocytes # (Auto) 0.7 Thou/mm3 (0.0-0.8); Monocytes % (Auto) 29 % (0-12); Neutrophils # (Auto) 1.0 Thou/mm3 (1.8-7.7); Neutrophils % (Auto) 42 % (37-80); Nucleated Red Blood Cell # 0.00 Thou/mm3 (0.00-0.00); Nucleated Red Blood Cell % 0 /100 WBC (0); RDW Standard Deviation 41.1 fL (35.1-43.9); Red Blood Count 2.43 Miln/mm3 (4.50-5.90); White Blood Count 2.3 Thou/mm3 (3.8-10.6)
[2025-04-12 08:49] LABS: Hematocrit 20.1 % (41.0-53.0); Hemoglobin 6.8 g/dL (13.5-16.0)
[2025-04-12 08:50] LABS: Platelet Count 9 Thou/mm3 (140-440)
[2025-04-12 09:23] LABS: Slide Review Platelets confirmed
[2025-04-12 13:22] LABS: Ferritin 1116 ng/mL (10.5-307.3)
[2025-04-19 09:34] LABS: Basophils # (Auto) 0.0 Thou/mm3 (0.0-0.2); Basophils % (Auto) 0 % (0-2.5); Eosinophils # (Auto) 0.0 Thou/mm3 (0.0-0.5); Eosinophils % (Auto) 0 % (0-10); Hematocrit 22.7 % (41.0-53.0); Immature Granulocytes Auto 0.10 Thou/mm3 (0.00-0.00); Lymphocytes # (Auto) 0.9 Thou/mm3 (1.0-4.8); Lymphocytes % (Auto) 29 % (10-50); Mean Corpuscular HGB Conc 33.5 g/dl (31.0-37.0); Mean Corpuscular Hemoglobin 27.8 pg (25.0-35.0); Mean Corpuscular Volume 83 fL (80-100); Monocytes # (Auto) 0.9 Thou/mm3 (0.0-0.8); Monocytes % (Auto) 30 % (0-12); Neutrophils # (Auto) 1.1 Thou/mm3 (1.8-7.7); Neutrophils % (Auto) 38 % (37-80); Nucleated Red Blood Cell # 0.00 Thou/mm3 (0.00-0.00); Nucleated Red Blood Cell % 0 /100 WBC (0); RDW Standard Deviation 41.9 fL (35.1-43.9); Red Blood Count 2.73 Miln/mm3 (4.50-5.90); White Blood Count 3.0 Thou/mm3 (3.8-10.6)
[2025-04-19 09:55] LABS: Hemoglobin 7.6 g/dL (13.5-16.0)
[2025-04-19 09:56] LABS: Platelet Count 8 Thou/mm3 (140-440)
[2025-04-19 09:58] LABS: Slide Review Platelets confirmed
[2025-04-19 10:49] LABS: Ferritin 1256 ng/mL (10.5-307.3)
[2025-04-26 10:21] LABS: Basophils # (Auto) 0.0 Thou/mm3 (0.0-0.2); Basophils % (Auto) 0 % (0-2.5); Eosinophils # (Auto) 0.0 Thou/mm3 (0.0-0.5); Eosinophils % (Auto) 0 % (0-10); Hematocrit 21.4 % (41.0-53.0); Immature Granulocytes Auto 0.12 Thou/mm3 (0.00-0.00); Lymphocytes # (Auto) 1.0 Thou/mm3 (1.0-4.8); Lymphocytes % (Auto) 34 % (10-50); Mean Corpuscular HGB Conc 34.1 g/dl (31.0-37.0); Mean Corpuscular Hemoglobin 28.2 pg (25.0-35.0); Mean Corpuscular Volume 83 fL (80-100); Monocytes # (Auto) 0.8 Thou/mm3 (0.0-0.8); Monocytes % (Auto) 27 % (0-12); Neutrophils # (Auto) 1.0 Thou/mm3 (1.8-7.7); Neutrophils % (Auto) 35 % (37-80); Nucleated Red Blood Cell # 0.00 Thou/mm3 (0.00-0.00); Nucleated Red Blood Cell % 0 /100 WBC (0); RDW Standard Deviation 41.1 fL (35.1-43.9); Red Blood Count 2.59 Miln/mm3 (4.50-5.90); White Blood Count 2.9 Thou/mm3 (3.8-10.6)
[2025-04-26 10:43] LABS: Hemoglobin 7.3 g/dL (13.5-16.0); Platelet Count 8 Thou/mm3 (140-440)
[2025-04-26 13:33] LABS: Slide Review Platelets confirmed
[2025-05-03 08:42] LABS: Basophils # (Auto) 0.0 Thou/mm3 (0.0-0.2); Basophils % (Auto) 0 % (0-2.5); Eosinophils # (Auto) 0.0 Thou/mm3 (0.0-0.5); Eosinophils % (Auto) 0 % (0-10); Lymphocytes # (Auto) 1.5 Thou/mm3 (1.0-4.8); Mean Corpuscular Volume 84 fL (80-100); Monocytes # (Auto) 0.7 Thou/mm3 (0.0-0.8); Nucleated Red Blood Cell # 0.00 Thou/mm3 (0.00-0.00); Nucleated Red Blood Cell % 0 /100 WBC (0)
[2025-05-03 08:44] LABS: Hematocrit 22.9 % (41.0-53.0); Hemoglobin 7.8 g/dL (13.5-16.0); Immature Granulocytes Auto 0.19 Thou/mm3 (0.00-0.00); Lymphocytes % (Auto) 46 % (10-50); Mean Corpuscular HGB Conc 34.1 g/dl (31.0-37.0); Mean Corpuscular Hemoglobin 28.7 pg (25.0-35.0); Monocytes % (Auto) 22 % (0-12); Neutrophils # (Auto) 0.8 Thou/mm3 (1.8-7.7); Neutrophils % (Auto) 26 % (37-80); RDW Standard Deviation 43.8 fL (35.1-43.9); Red Blood Count 2.72 Miln/mm3 (4.50-5.90); White Blood Count 3.3 Thou/mm3 (3.8-10.6)
[2025-05-03 08:46] LABS: Platelet Count 5 Thou/mm3 (140-440)
[2025-05-03 09:01] LABS: Ferritin 1301 ng/mL (10.5-307.3)
[2025-05-03 10:11] LABS: Slide Review Platelets confirmed
[2025-05-10 09:14] LABS: Basophils # (Auto) 0.0 Thou/mm3 (0.0-0.2); Basophils % (Auto) 0 % (0-2.5); Eosinophils # (Auto) 0.0 Thou/mm3 (0.0-0.5); Eosinophils % (Auto) 0 % (0-10); Hematocrit 21.9 % (41.0-53.0); Immature Granulocytes Auto 0.14 Thou/mm3 (0.00-0.00); Lymphocytes # (Auto) 0.9 Thou/mm3 (1.0-4.8); Lymphocytes % (Auto) 26 % (10-50); Mean Corpuscular HGB Conc 33.3 g/dl (31.0-37.0); Mean Corpuscular Hemoglobin 28.4 pg (25.0-35.0); Mean Corpuscular Volume 85 fL (80-100); Monocytes # (Auto) 0.9 Thou/mm3 (0.0-0.8); Monocytes % (Auto) 27 % (0-12); Neutrophils # (Auto) 1.4 Thou/mm3 (1.8-7.7); Neutrophils % (Auto) 43 % (37-80); Nucleated Red Blood Cell # 0.00 Thou/mm3 (0.00-0.00); Nucleated Red Blood Cell % 0 /100 WBC (0); RDW Standard Deviation 43.6 fL (35.1-43.9); Red Blood Count 2.57 Miln/mm3 (4.50-5.90); White Blood Count 3.3 Thou/mm3 (3.8-10.6)
[2025-05-10 09:16] LABS: Hemoglobin 7.3 g/dL (13.5-16.0)
[2025-05-10 09:17] LABS: Platelet Count 5 Thou/mm3 (140-440); Slide Review Platelets confirmed
== END 2025-05-11 23:59 | disposition home or self-care (01) ==
LOC: SCTC 07:29
PROVIDERS: PCP Family Medicine; Referring Provider Family Medicine; Visit Provider Internal Medicine Hematology & Oncology
DX: D46.9 Myelodysplastic syndrome, unspecified (principal); Z86.718 Personal history of other venous thrombosis and embolism; Z79.01 Long term (current) use of anticoagulants
CPT/HCPCS: 36415; 36430; 82728; 85025; 86850; 86900; 86901; 86923; 86965; A4216; J7040; P9016; P9035; P9037